=== PATIENT | female | born 1960 | race Caucasian/White ===

== ENCOUNTER 2019-09-05 06:48 | Inpatient (IN) ==
[2019-09-05] MEDS ORDERED: ASPIRIN PO ONE (08:15)
--- NOTE | 2019-09-05 08:16 | PROVIDER DOCUMENTATION ---
HPI-Cardiac General - General Stated Complaint: generalized pain Time Seen by Provider: 09/05/19 07:45 Source: patient, family ( at bedside) - History of Present Illness-Cardiac Nature of Presenting Problem: 59 YO F pmh for CVA residual left sided weakness presents with c/o right sided chest pain, sharp with associated nausea that began at 0500 today. Pt has multiple complaints and states she is in pain. Pain not worse with inspiration. Quality of Pain: reports: aching, sharp Severity in ED: moderate Onset/Duration: 1-3 hours ago Timing: still present, constant Context/Activities at Onset: reports: none Modifying Factors: improves with: nothing Aspirin Treatment Today: reports: 81 mg x 1 Review of Systems - Adult - REVIEW OF SYSTEMS - ADULT Constitutional: denies: chills, fever Eyes: reports: no symptoms reported Ears, Nose, Mouth & Throat: reports: no symptoms reported Cardiovascular: reports: chest pain. denies: palpitations, syncope Respiratory: denies: cough, shortness of breath, wheezing Gastrointestinal: reports: nausea, vomiting Genitourinary: reports: no symptoms reported. denies: dysuria, flank pain Musculoskeletal: reports: bone pain, joint pain, muscle aches Integumentary: reports: no symptoms reported Neurological: denies: headache/migraines Psychiatric: reports: no symptoms reported Endocrine: reports: no symptoms reported Hematologic/Lymphatic: reports: no symptoms reported Past History - Adult - PAST MEDICAL HISTORY-ADULT Review of Records: reports: Old Records Reviewed, Social history reviewed & non-contributory. Respiratory: reports: denies history Gastrointestinal: reports: denies history Neurological: reports: CVA, stroke deficits (left sided) Psychiatric: reports: denies history - PRIOR SURGERIES/PROCEDURES Surgical/Procedure History: denies: recent surgery - FAMILY HISTORY Family History: reviewed, not pertinent - SOCIAL HISTORY Smoking: denies Substance Use: denies Living Situation: family Physical Exam-General - PHYSICAL EXAM-ADULT Initial Vital Signs Reviewed: Yes - CONSTITUTIONAL General Appearance: alert, no apparent distress - EYES Eyes: PERRL/EOMI, pink conjunctivae - HEAD, EARS, NOSE, MOUTH & THROAT HENMT: moist mucous membranes - NECK Neck: supple - RESPIRATORY Respiratory: lungs clear, normal breath sounds, no pleuratic chest pain - CARDIOVASCULAR Cardiovascular: regular rate, rhythm - GASTROINTESTINAL (ABDOMEN) Abdominal Exam: non tender, soft - MUSCULOSKELETAL Back Exam: no CVA tenderness Extremity: other (left sided residual weakness) - SKIN Integumentary: normal color, normal turgor, warm/dry - PSYCHIATRIC Psych/Mental Status: normal thought content - HEART Score HEART Score: History: Slightly Suspicious HEART Score: ECG: Normal HEART Score: Age: 45-65 Years HEART Score: Risk Factors for Atherosclerotic Disease: 1 or 2 Risk Factors HEART Score: Troponin: 1-3x Normal Limit Total HEART Score:: 3 Progress - PLAN OF CARE/RESULTS Progress/Plan/Lab Results: Vital Signs - 8 hr 09/05/19 07:46 Pulse Rate 91 H Respiratory Rate 18 Blood Pressure 136/88 O2 Sat by Pulse Oximetry 97 Laboratory Results - last 24 hr 09/05/19 09/05/19 09/05/19 07:40 07:40 07:40 WBC 10.24 RBC 4.49 Hgb 13.3 Hct 42.0 MCV 93.5 MCH 29.6 MCHC 31.7 L RDW Std Deviation 13.4 Plt Count 348 MPV 10.7 H Immature Gran % (Auto) 0.4 Neut % (Auto) 69.2 Lymph % (Auto) 18.0 L Kemper % (Auto) 5.8 Eos % (Auto) 6.3 Baso % (Auto) 0.3 Immature Gran # (Auto) 0.04 Neut # (Auto) 7.10 H Lymph # (Auto) 1.84 Kemper # (Auto) 0.59 Eos # (Auto) 0.64 Baso # (Auto) 0.03 Sodium 136 Potassium 6.2 H* Chloride 103 Carbon Dioxide 16 L Anion Gap 17 BUN 45 H Creatinine 1.3 H Estimated GFR/1.73 m2 42 BUN/Creatinine Ratio 35 Glucose 137 H Calculated Osmolality 286 Calcium 9.5 Total Bilirubin 0.21 AST 9 L ALT < 5 L Alkaline Phosphatase 84 Troponin T 0.036 Total Protein 6.4 Albumin 3.7 Globulin 2.7 Albumin/Globulin Ratio 1.4 TSH 09/05/19 07:40 WBC RBC Hgb Hct MCV MCH MCHC RDW Std Deviation Plt Count MPV Immature Gran % (Auto) Neut % (Auto) Lymph % (Auto) Kemper % (Auto) Eos % (Auto) Baso % (Auto) Immature Gran # (Auto) Neut # (Auto) Lymph # (Auto) Kem[place] # (Auto) Eos # (Auto) Baso # (Auto) Sodium Potassium Chloride Carbon Dioxide Anion Gap BUN Creatinine Estimated GFR/1.73 m2 BUN/Creatinine Ratio Glucose Calculated Osmolality Calcium Total Bilirubin AST ALT Alkaline Phosphatase Troponin T Total Protein Albumin Globulin Albumin/Globulin Ratio TSH 3.84 Orders Category Date Time Status Cardiac Monitoring DIRECTED Care 09/05/19 08:21 Active CHEST-1 VIEW [RAD] Stat Exams 09/05/19 08:13 Completed CBC WITH ELECTRONIC DIFF [HEME] Stat Lab 09/05/19 07:40 Completed COMPREHENSIVE METABOLIC PANEL [CHEM] Stat Lab 09/05/19 07:40 Completed MAGNESIUM [CHEM] Stat Lab 09/05/19 10:07 Ordered TROPONIN T Stat Lab 09/05/19 07:40 Completed TSH Stat Lab 09/05/19 07:40 Completed URINALYSIS W/POSS RFLX CULT [URINALYSIS] Stat Lab 09/05/19 08:21 Ordered 0.9% Sodium Chloride Inj [Ns] 1,000 ml Med 09/05/19 09:49 Active IV 999 mls/hr Albuterol 0.5% INH Conc [Albuterol 0.5% INH Conc For Med 09/05/19 09:45 Discontinued Hyperkalemia] 25 mg INH NOW ONE Aspirin Med 09/05/19 08:15 Discontinued 324 mg PO NOW ONE Morphine Med 09/05/19 08:20 Discontinued 4 mg IV NOW ONE Ondansetron [Zofran] Med 09/05/19 08:21 Discontinued 4 mg IV NOW ONE Sodium Polystyrene [Kayexalate] Med 09/05/19 09:46 Discontinued 30 gm PO NOW ONE Aerosol Treatments Routine Oth 09/05/19 09:45 Active Aerosol Treatments Stat Oth 09/05/19 09:45 Active EKG [EKG] Stat Ther 09/05/19 08:13 Draft pt with normal EKG and normal trop and xray. Potassium showing elevation at 6.2 with elevated creat at 1.3 and GFR at 45. admitting for hyperkalemia with SHELL. Result Diagrams: 09/05/19 07:40 09/05/19 07:40 - REASSESSMENT Reassessment #1 Time Reassessed: 09:40 Status: improving (pt improving after morphine and zofran. Pt with multiple complaints and having pain on admission. More concerns for pain in her left leg.) Reassessment #2 Time Reassessed: 09:48 Status: improving (labs reviewed. Potassium at 6.2. Creat at 1.3) - EKG 1 Time of EKG reading by physician:: 08:15 EKG Read and Signed by:: Jennie Davis EKG Interpretation (*Must complete 3 of following elements*): Normal Rate: 95 Rhythm: NSR [place]: normal QRS: normal CA Interval: normal (low voltage) Prior EKG Comparison: unchanged from prior (02/19/19) - XRAY 1 XRAY Study: Chest Impression: See EMR Report (CHEST-1 VIEW - 09/05/2019 INDICATION: CP COMPARISON: 02/15/2019 FINDINGS: The lungs are normally expanded and clear. Heart size and mediastinal contours are normal. No pneumothorax or pleural effusion. IMPRESSION: Negative exam. Electronically signed by Ady Landers 09/05/2019 8:32 AM 09/05/19 0832) - CONSULTS/PCP/HOSPITALIST Notification #1 *Consult/PCP/Hospitalist*: Dr. Esau Alvarez Time Discussed: 10:03 Consult Disposition: Will see in ED Departure - Departure Date of Disposition Decision: 09/05/19 Time of Disposition Decision: 10:02 DIAGNOSIS: Atypical chest pain, Hyperkalemia, SHELL (acute kidney injury) Disposition: ADMITTED INPATIENT 09 Certified Medical Emergency: Emergent Condition: Stable Referrals and Follow-Ups: Juju Kohler [Primary Care Provider] - - Critical Care Note This patient required my direct & personal management of CC.: No Attestation - Physician/ LATRICE Attestation The physician spent face to face time with patient:: Yes Advanced Practice Provider documentation review:: Supervising physician onsite and consulted in the evaluation and care of this patient. The physician did have a face to face encounter with the patient.
--- NOTE | 2019-09-05 08:19 | EKG Report ---
Test Performed on : 09/05/2019 08:11:08 AM Test Reason : CP Blood Pressure : / mmHG Vent. Rate : 095 BPM Atrial Rate : 095 BPM P-R Int : 182 ms QRS Dur : 104 ms QT Int : 374 ms P-R-T Axes : 050 -16 067 degrees QTc Int : 469 ms Normal sinus rhythm. Low voltage QRS Borderline ECG When compared with ECG of 15-FEB-2019 19:48, Questionable change in QRS duration Unconfirmed Result
[2019-09-05] MEDS ORDERED: MORPHINE IV ONE (08:20)
[2019-09-05] MEDS ORDERED: ZOFRAN IV ONE (08:21)
--- NOTE | 2019-09-05 08:35 | Diag Imaging Result Doc PS360 ---
CHEST-1 VIEW - 09/05/2019 INDICATION: CP COMPARISON: 02/15/2019 FINDINGS: The lungs are normally expanded and clear. Heart size and mediastinal contours are normal. No pneumothorax or pleural effusion. IMPRESSION: Negative exam. Electronically signed by Ady Landers 09/05/2019 8:32 AM
[2019-09-05 08:43] LABS: BASO# 0.03 X1000 (0.0-0.2); BASO% 0.3 % (0.0-0.8); EOS# 0.64 X1000 (0.0-0.7); EOS% 6.3 % (0.0-10.0); HEMOGLOBIN 13.3 g/dL (12.0-16.0); IMM GRAN# 0.04 X1000 (0.0-0.04); IMM GRAN% 0.4 % (0.0-0.5); LYMPH# 1.84 X1000 (1.2-3.4); MCH 29.6 PG (27-31); MCHC 31.7 g/dL (33-37); MCV 93.5 FL (81-99); MONO# 0.59 X1000 (0.11-0.59); MONO% 5.8 % (1.7-9.3); MPV 10.7 FL (7.4-10.4); NEUT% 69.2 % (42.2-75.2); PLT 348 X1000 (130-400); RBC 4.49 XMIL (4.2-5.4); RDW 13.4 % (11.5-14.5); WBC 10.24 X1000 (4.8-10.8)
[2019-09-05 09:34] LABS: AGAP 17; ALB/GLOB RATIO 1.4; ALBUMIN 3.7 g/dL (3.5-5.0); ALKALINE PHOSPHATASE 84 U/L (32-104); BUN 45 mg/dL (8-22); CALCIUM 9.5 mg/dL (8.8-10.2); CHLORIDE 103 mmol/L (98-107); COSMO 286; CREATININE 1.3 mg/dL (0.5-0.9); ESTIMATED GFR 42; GLUCOSE 137 mg/dL (70-104); GOT 9 U/L (10-30); GPT < 5 U/L (10-36); SODIUM 136 mmol/L (136-145); TCO2 16 mmol/L (25-35); TOTAL BILIRUBIN 0.21 mg/dL (0.20-1.00); TOTAL PROTEIN 6.4 g/dL (6.3-8.3)
[2019-09-05 09:44] LABS: POTASSIUM 6.2 mmol/L (3.5-5.1)
[2019-09-05] MEDS ORDERED: ALBUTEROL 0.5% INH CONC FOR HYPERKALEMIA INH ONE (09:45)
[2019-09-05] MEDS ORDERED: KAYEXALATE PO ONE (09:46)
[2019-09-05] MEDS ORDERED: NS 1,000 ML IV ONE (09:49)
[2019-09-05] MEDS ORDERED: TYLENOL PO PRN (10:10)
[2019-09-05] MEDS: HEPARIN SUBQ SCH (10:27)
[2019-09-05] MEDS ORDERED: HUMULIN R IV ONE (12:06)
[2019-09-05] MEDS ORDERED: D50W 500 ML IV SCH (12:15)
[2019-09-05] MEDS ORDERED: D50W SYRINGE IV ONE (12:15)
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
--- NOTE | 2019-09-05 14:51 | Diag Imaging Result Doc PS360 ---
EXAM: US RENAL 2 (RETROPER) COMPLETE 09/05/2019 HISTORY: avinash TECHNIQUE: Renal ultrasound COMMENT: The urinary bladder is not distended and is normal in appearance. The right kidney measures 9.8 x 4.5 x 5.3 cm the left is 9.6 x 4.4 x 5.7 cm. There is a cortical cyst on the right measuring 9 mm in diameter. No solid masses are demonstrated. There is no evidence of hydronephrosis or stones. IMPRESSION: Normal renal ultrasound. Electronically signed by Cristian Rajan 09/05/2019 2:49 PM
[2019-09-05 15:48] LABS: CALCIUM 9.5 mg/dL (8.8-10.2); CREATININE 1.3 mg/dL (0.5-0.9); POTASSIUM 5.2 mmol/L (3.5-5.1)
[2019-09-05] MEDS ORDERED: ROBAXIN PO PRN (16:19)
[2019-09-05] MEDS ORDERED: ZOFRAN IV PRN (16:19)
[2019-09-05] MEDS: NS 1,000 ML IV SCH (16:33)
[2019-09-05] MEDS: NORCO-5 PO PRN (16:58)
[2019-09-05 17:23] LABS: URINE SOURCE CATH
[2019-09-05 17:41] LABS: UR CREAT RANDOM 80.8 mg/dL (11-20)
[2019-09-05 17:53] LABS: UR EPITHELIAL CELLS >10 /HPF (<10); URINE BACTERIA NEGATIVE /HPF; URINE RBC <10 /HPF (<10); URINE WBC <10 /HPF (<10)
[2019-09-05 17:54] LABS: BILIRUBIN URINE NEGATIVE (NEGATIVE); BLOOD URINE NEGATIVE (NEGATIVE); COLOR YELLOW; GLUCOSE URINE 100 mg/dL (NEGATIVE); KETONE URINE 10 mg/dL (NEGATIVE); LEUKOCYTES URINE NEGATIVE (NEGATIVE); NITRITE URINE NEGATIVE (NEGATIVE); PROTEIN URINE TRACE mg/dL (NEGATIVE); SP GRAVITY URINE 1.022; TURBIDITY URINE CLEAR (CLEAR); UROBILINOGEN URINE NORMAL (NORMAL)
[2019-09-06] MEDS: NORCO-5 PO PRN (00:23)
[2019-09-06] MEDS: HEPARIN SUBQ SCH ×3 (00:24→21:50)
[2019-09-06] MEDS: ATIVAN PO SCH ×2 (01:52→09:43)
[2019-09-06] MEDS: APRESOLINE PO SCH ×3 (01:53→21:49)
[2019-09-06] MEDS: WELLBUTRIN SR PO SCH ×3 (01:54→21:49)
[2019-09-06] MEDS: CELEXA PO SCH ×2 (01:54→21:50)
[2019-09-06] MEDS: COLACE PO SCH ×2 (01:54→09:45)
[2019-09-06] MEDS: SINGULAIR PO SCH ×2 (01:54→21:49)
[2019-09-06] MEDS: ROBAXIN PO SCH ×2 (01:55→21:49)
[2019-09-06] MEDS: REMERON PO SCH ×2 (01:55→21:50)
[2019-09-06] MEDS: PRILOSEC PO SCH ×3 (01:55→21:49)
[2019-09-06] MEDS: NEURONTIN PO SCH ×2 (01:55→21:50)
[2019-09-06] MEDS: DEPAKOTE SPRINKLE PO SCH ×3 (01:56→21:49)
[2019-09-06] MEDS: LIPITOR PO SCH ×2 (01:56→21:49)
[2019-09-06] MEDS: LACTULOSE PO SCH ×4 (01:56→22:00)
[2019-09-06] MEDS: COREG PO SCH ×3 (01:57→21:49)
[2019-09-06 04:35] LABS: BASO# 0.02 X1000 (0.0-0.2); BASO% 0.3 % (0.0-0.8); HEMATOCRIT 38.7 % (37.0-47.0); HEMOGLOBIN 11.9 g/dL (12.0-16.0); IMM GRAN# 0.02 X1000 (0.0-0.04); IMM GRAN% 0.3 % (0.0-0.5); LYMPH# 2.17 X1000 (1.2-3.4); LYMPH% 30.2 % (20.5-51.1); MCH 29.3 PG (27-31); MCHC 30.7 g/dL (33-37); MCV 95.3 FL (81-99); MONO# 0.68 X1000 (0.11-0.59); MONO% 9.5 % (1.7-9.3); MPV 10.3 FL (7.4-10.4); NEUT% 52.7 % (42.2-75.2); PLT 272 X1000 (130-400); RBC 4.06 XMIL (4.2-5.4); RDW 13.4 % (11.5-14.5); WBC 7.19 X1000 (4.8-10.8)
[2019-09-06 04:59] LABS: AGAP 13; ALB/GLOB RATIO 1.1; ALBUMIN 3.2 g/dL (3.5-5.0); ALKALINE PHOSPHATASE 71 U/L (32-104); BUN 32 mg/dL (8-22); CHLORIDE 105 mmol/L (98-107); COSMO 283; CREATININE 1.1 mg/dL (0.5-0.9); ESTIMATED GFR 51; GLUCOSE 111 mg/dL (70-104); GOT 10 U/L (10-30); GPT < 5 U/L (10-36); POTASSIUM 4.2 mmol/L (3.5-5.1); SODIUM 138 mmol/L (136-145); TCO2 20 mmol/L (25-35); TOTAL BILIRUBIN < 0.15 mg/dL (0.20-1.00); TOTAL PROTEIN 6.2 g/dL (6.3-8.3)
[2019-09-06] MEDS: ZOFRAN IV PRN (08:01)
--- NOTE | 2019-09-06 08:07 | EKG Report ---
Test Performed on : 09/06/2019 07:27:24 AM Test Reason : chest pain Blood Pressure : / mmHG Vent. Rate : 083 BPM Atrial Rate : 083 BPM P-R Int : 156 ms QRS Dur : 088 ms QT Int : 390 ms P-R-T Axes : 054 016 069 degrees QTc Int : 458 ms Normal sinus rhythm. Normal ECG When compared with ECG of 05-SEP-2019 08:11, (Unconfirmed) No significant change was found Confirmed by Vlad REY, Alonso ([id number]) on 09/06/2019 8:55:35 AM
[2019-09-06] MEDS ORDERED: PERCOCET-5 PO PRN (08:13)
[2019-09-06] MEDS ORDERED: PROTONIX PO SCH (09:00)
--- NOTE | 2019-09-06 09:00 | PROGRESS NOTE ---
DATE: 09/05/2019 SUBJECTIVE: Ms. Viveros says she did not sleep much last night. This morning she is complaining of nausea again. She has not complained of any chest pain. OBJECTIVE: Vital Signs: Temperature is 97.8 degrees, pulse 86, respirations 18, blood pressure 131/73. Eyes: Pupils are equal. Neck: No distended neck veins. Lungs: Lungs are clear in all lung arnold. Cardiovascular exam: Regular rhythm and rate without murmur or S3. Abdomen: Abdomen is soft, nondistended, nontender. Extremities: No pedal edema. LABORATORY DATA: Review of lab from yesterday: White count was 7190, hematocrit was 38, platelet count 272,000. Her sodium is good at 138, potassium 4.2, chloride 105. BUN 32, creatinine 1.1 which is down from 1.3, albumin 3.2. T4 and TSH were normal. ASSESSMENT AND PLAN: 1. Chest pain which sounded like it was not cardiac, and it was in the face of constipation and nausea. She has had some bowel movements. I think the constipation is resolved, and I think she is still nauseated. I suspect she has some underlying gastritis. 2. Hyperkalemia. Her potassium this morning is down to 4.2. 3. Left leg pain and left foot pain. It migrates up her leg and into her left knee. She has not been out of the bed, able to ambulate. We will get physical therapy to try and help with that. 4. Hypertension. Blood pressure appears well controlled. Looking back at her old films, I do not see any recent x-rays on the left leg. So, I am going to x-ray the left leg and have physical therapy try and work on her ambulation. She is taking Wellbutrin SR 150 mg twice a day, and she is on Celexa 40 mg at bedtime. She is on Depakote 125 mg twice a day, Colace 100 mg twice a day, Neurontin 300 mg at bedtime, Apresoline 25 mg b.i.d., Linzess 72 mcg p.o. daily, metformin 1000 mg daily, Remeron 15 mg at bedtime, Prilosec 40 mg b.i.d. I suspect some of the medicines may be contributing to her nausea; the combination of Wellbutrin and Celexa and Neurontin. So, I may discuss stopping some of these medicines, and we will see how we do with occupation and physical therapy. Put her on a regular diet. I am going to put her on a high dose. I will keep her on high-dose proton pump inhibitor. She is on Prilosec 40 mg twice a day. cc: Rubens Cifuentes MD
[2019-09-06] MEDS: MOBIC PO SCH (09:45)
[2019-09-06] MEDS: GLUCOPHAGE XR PO SCH (10:31)
[2019-09-06] MEDS: NS 1,000 ML IV SCH ×2 (10:31→14:25)
[2019-09-06] MEDS: LANTUS INSULIN SUBQ SCH (12:52)
[2019-09-06] MEDS: LIDODERM TOP SCH (12:53)
[2019-09-06] MEDS: LINZESS PO SCH (12:54)
[2019-09-07] MEDS: COLACE PO SCH ×3 (04:55→20:29)
[2019-09-07] MEDS: LIDODERM TOP SCH ×2 (06:32→10:10)
[2019-09-07] MEDS: LINZESS PO SCH (06:34)
[2019-09-07 07:32] LABS: BASO# 0.01 X1000 (0.0-0.2); BASO% 0.2 % (0.0-0.8); EOS# 0.61 X1000 (0.0-0.7); EOS% 11.1 % (0.0-10.0); HEMATOCRIT 28.5 % (37.0-47.0); HEMOGLOBIN 8.8 g/dL (12.0-16.0); LYMPH# 1.78 X1000 (1.2-3.4); LYMPH% 32.4 % (20.5-51.1); MCH 29.5 PG (27-31); MCHC 30.9 g/dL (33-37); MCV 95.6 FL (81-99); MONO# 0.47 X1000 (0.11-0.59); MONO% 8.5 % (1.7-9.3); MPV 10.4 FL (7.4-10.4); NEUT# 2.63 X1000 (1.4-6.5); NEUT% 47.8 % (42.2-75.2); PLT 199 X1000 (130-400); RBC 2.98 XMIL (4.2-5.4); RDW 13.1 % (11.5-14.5)
[2019-09-07 07:57] LABS: AGAP 12; ALB/GLOB RATIO 1.1; ALBUMIN 2.3 g/dL (3.5-5.0); ALKALINE PHOSPHATASE 47 U/L (32-104); BUN 14 mg/dL (8-22); CHLORIDE 119 mmol/L (98-107); COSMO 293; CREATININE 0.5 mg/dL (0.5-0.9); ESTIMATED GFR > 60; GLUCOSE 64 mg/dL (70-104); GOT 8 U/L (10-30); GPT < 5 U/L (10-36); SODIUM 148 mmol/L (136-145); TCO2 17 mmol/L (25-35); TOTAL BILIRUBIN < 0.15 mg/dL (0.20-1.00); TOTAL PROTEIN 4.3 g/dL (6.3-8.3)
[2019-09-07 08:07] LABS: CALCIUM 6.4 mg/dL (8.8-10.2)
[2019-09-07] MEDS ORDERED: MAGNESIUM SULFATE 2 GM/S.W.I. 2 GM/50 ML IVPB IV ONE (08:13)
[2019-09-07] MEDS: ZOFRAN IV PRN (10:15)
[2019-09-07] MEDS: LANTUS INSULIN SUBQ SCH (10:18)
[2019-09-07] MEDS: DEPAKOTE SPRINKLE PO SCH ×2 (10:20→20:29)
[2019-09-07] MEDS: HEPARIN SUBQ SCH ×2 (10:20→20:29)
[2019-09-07] MEDS: PRILOSEC PO SCH ×2 (10:20→20:29)
[2019-09-07] MEDS: GLUCOPHAGE XR PO SCH (10:20)
[2019-09-07] MEDS: APRESOLINE PO SCH ×2 (10:21→20:29)
[2019-09-07] MEDS: LACTULOSE PO SCH ×3 (10:21→20:42)
[2019-09-07] MEDS: MOBIC PO SCH (10:21)
[2019-09-07] MEDS: WELLBUTRIN SR PO SCH ×2 (10:21→20:29)
[2019-09-07] MEDS: COREG PO SCH ×2 (10:22→20:28)
[2019-09-07] MEDS: NS 1,000 ML IV SCH (12:07)
[2019-09-07] MEDS ORDERED: CALCIUM GLUCONATE 1 GM in NS 50 ML IV ONE (13:06)
--- NOTE | 2019-09-07 13:37 | PROGRESS NOTE ---
DATE: 09/07/2019 SUBJECTIVE: Ms. Viveros is discouraged. She is still very weak and concerned about the fact she is going to need quite a bit of help. OBJECTIVE: Vital Signs: Temperature is 98.1 degrees, pulse 70, respirations 18, blood pressure 98/51. HEENT: Pupils are equal and round. Lungs: Clear in all lung arnold. Cardiovascular: Regular rate without murmur or S3. Abdomen: Soft. Skin: Warm and dry. ASSESSMENT AND PLAN: 1. Chest pain, which did not sound like it is cardiac, and this was in the face of constipation, nausea, and constipation is improved. I suspect she has some underlying gastritis. 2. Hyperkalemia. Potassium was down to normal levels. 3. Left leg pain, foot pain. We will continue physical therapy. 4. Hypertension. Blood pressures appear well controlled. REVIEW OF HER ORDERS/MEDICATIONS: Lipitor 40 mg every night at bedtime, Wellbutrin 150 mg p.o. b.i.d., Coreg 6.25 mg b.i.d., Celexa 40 mg a day; divalproex, which is Depakote, 125 mg p.o. b.i.d.; Colace 100 mg b.i.d., Neurontin 300 mg every at bedtime, hydralazine 25 mg b.i.d.; insulin glargine, which is Lantus, 15 units daily; lactulose 30 mL b.i.d., lidocaine patch which she puts daily, Linzess 72 mcg daily, Mobic 15 mg daily, metformin ER 1000 mg p.o. daily, methocarbamol 750 mg p.o. every night at bedtime, Remeron 15 mg every night at bedtime, Singulair 10 mg every night at bedtime, normal saline at 85 mL an hour, omeprazole 40 mg p.o. b.i.d. cc: Rubens Cifuentes MD
[2019-09-07] MEDS ORDERED: ATIVAN IV PRN (15:10)
[2019-09-07] MEDS ORDERED: CALMOSEPTINE OINTMENT TOP PRN (15:31)
[2019-09-07] MEDS: MAG-OX PO SCH (20:28)
[2019-09-07] MEDS: SINGULAIR PO SCH (20:29)
[2019-09-07] MEDS: ROBAXIN PO SCH (20:29)
[2019-09-07] MEDS: REMERON PO SCH (20:29)
[2019-09-07] MEDS: LIPITOR PO SCH (20:29)
[2019-09-07] MEDS: CELEXA PO SCH (20:29)
[2019-09-07] MEDS: NEURONTIN PO SCH (20:32)
[2019-09-08] MEDS: HEPARIN SUBQ SCH ×3 (04:15→22:00)
[2019-09-08] MEDS: LINZESS PO SCH (06:11)
[2019-09-08 07:09] LABS: AGAP 10; ALB/GLOB RATIO 1.1; ALBUMIN 2.7 g/dL (3.5-5.0); ALKALINE PHOSPHATASE 67 U/L (32-104); BUN 9 mg/dL (8-22); CALCIUM 8.9 mg/dL (8.8-10.2); CHLORIDE 114 mmol/L (98-107); COSMO 284; CREATININE 0.7 mg/dL (0.5-0.9); ESTIMATED GFR > 60; GLUCOSE 78 mg/dL (70-104); GOT 10 U/L (10-30); GPT < 5 U/L (10-36); MAGNESIUM 1.7 mg/dL (1.5-2.7); POTASSIUM 3.9 mmol/L (3.5-5.1); SODIUM 144 mmol/L (136-145); TCO2 20 mmol/L (25-35); TOTAL BILIRUBIN 0.18 mg/dL (0.20-1.00); TOTAL PROTEIN 5.1 g/dL (6.3-8.3)
[2019-09-08 07:19] LABS: BASO# 0.02 X1000 (0.0-0.2); BASO% 0.3 % (0.0-0.8); EOS# 0.67 X1000 (0.0-0.7); EOS% 9.2 % (0.0-10.0); HEMATOCRIT 32.2 % (37.0-47.0); HEMOGLOBIN 10.1 g/dL (12.0-16.0); LYMPH# 2.33 X1000 (1.2-3.4); MCH 29.5 PG (27-31); MCHC 31.4 g/dL (33-37); MCV 94.2 FL (81-99); MONO# 0.62 X1000 (0.11-0.59); MONO% 8.5 % (1.7-9.3); MPV 10.5 FL (7.4-10.4); NEUT# 3.64 X1000 (1.4-6.5); PLT 262 X1000 (130-400); RBC 3.42 XMIL (4.2-5.4); RDW 13.3 % (11.5-14.5); WBC 7.28 X1000 (4.8-10.8)
[2019-09-08] MEDS: WELLBUTRIN SR PO SCH ×2 (09:00→22:00)
[2019-09-08] MEDS: DEPAKOTE SPRINKLE PO SCH ×2 (09:56→22:00)
[2019-09-08] MEDS: MOBIC PO SCH (09:57)
[2019-09-08] MEDS: PRILOSEC PO SCH ×2 (09:57→22:00)
[2019-09-08] MEDS: COLACE PO SCH ×2 (09:57→22:00)
[2019-09-08] MEDS: COREG PO SCH ×2 (09:57→22:00)
[2019-09-08] MEDS: MAG-OX PO SCH ×2 (09:57→22:00)
[2019-09-08] MEDS: APRESOLINE PO SCH ×2 (09:58→22:00)
[2019-09-08] MEDS: LACTULOSE PO SCH ×2 (09:58→22:00)
[2019-09-08] MEDS: LIDODERM TOP SCH (09:58)
[2019-09-08] MEDS: GLUCOPHAGE XR PO SCH (09:59)
--- NOTE | 2019-09-08 10:22 | PROGRESS NOTE ---
DATE: 09/08/2019 Ms. Viveros is feeling a little better, less despondent this morning. She is still very weak. She had a pretty good night. OBJECTIVE: Vital Signs: Temp 98 degrees, pulse 80, respirations 19, blood pressure 103/66. HEENT: Pupils are equal and round. Lungs: Are clear in all lung arnold. Cardiovascular: Regular rhythm and rate without murmur or S3. Abdomen: Is soft. Skin: Is warm and dry. Urine output is 2000 mL. ASSESSMENT AND PLAN: 1. Chest pain which is resolved when she presented. No sign of cardiac ischemia. 2. Hyperkalemia which is resolved. 3. Left leg and foot pain. Continue her physical therapy and she is hoping she can go to rehab. There is a referral for [facility] and rehab. 4. Hypertension. Blood pressure is well controlled. REVIEW OF ORDERS: I do not see any change. She is on Lipitor 40 mg at bedtime, Wellbutrin SR 150 mg b.i.d., Coreg 6.25 mg b.i.d., Celexa 40 mg a day, Depakote 125 mg b.i.d., gabapentin 300 mg at bedtime, lactulose 30 mL b.i.d. She is only on lidocaine patch. She is on Linzess 72 mcg p.o. daily, Ativan 1 mg IV q.6 hours p.r.n., magnesium oxide 800 mg b.i.d., Mobic 15 mg p.o. daily, metformin ER 1000 mg daily, Robaxin 750 mg at bedtime, Remeron 15 mg at bedtime, Singulair 10 mg at bedtime, normal saline at 85 mL an hour, Prilosec 40 mg b.i.d. Calcium gluconate was given yesterday. Chemistries from this morning, calcium is 8.9, potassium 3.9, magnesium is 1.7 so markedly improved. cc: Rubens Cifuentes MD
[2019-09-08] MEDS: LANTUS INSULIN SUBQ SCH (10:25)
[2019-09-08] MEDS: NS 1,000 ML IV SCH (12:16)
[2019-09-08] MEDS: NORCO-5 PO PRN (19:24)
[2019-09-08] MEDS: REMERON PO SCH (22:00)
[2019-09-08] MEDS: CELEXA PO SCH (22:00)
[2019-09-08] MEDS: LIPITOR PO SCH (22:00)
[2019-09-08] MEDS: ROBAXIN PO SCH (22:00)
[2019-09-08] MEDS: SINGULAIR PO SCH (22:00)
[2019-09-08] MEDS: NEURONTIN PO SCH (22:00)
[2019-09-09] MEDS: LINZESS PO SCH (06:10)
[2019-09-09 07:03] LABS: BASO# 0.02 X1000 (0.0-0.2); BASO% 0.3 % (0.0-0.8); EOS# 0.63 X1000 (0.0-0.7); EOS% 9.3 % (0.0-10.0); HEMATOCRIT 32.4 % (37.0-47.0); HEMOGLOBIN 10.1 g/dL (12.0-16.0); IMM GRAN# 0.02 X1000 (0.0-0.04); IMM GRAN% 0.3 % (0.0-0.5); LYMPH# 2.92 X1000 (1.2-3.4); LYMPH% 43.2 % (20.5-51.1); MCH 29.3 PG (27-31); MCHC 31.2 g/dL (33-37); MCV 93.9 FL (81-99); MONO# 0.51 X1000 (0.11-0.59); MONO% 7.5 % (1.7-9.3); MPV 10.4 FL (7.4-10.4); NEUT# 2.66 X1000 (1.4-6.5); NEUT% 39.4 % (42.2-75.2); PLT 269 X1000 (130-400); RBC 3.45 XMIL (4.2-5.4); RDW 13.6 % (11.5-14.5); WBC 6.76 X1000 (4.8-10.8)
[2019-09-09 07:27] LABS: AGAP 10; ALB/GLOB RATIO 1.2; ALBUMIN 2.7 g/dL (3.5-5.0); ALKALINE PHOSPHATASE 66 U/L (32-104); BUN 8 mg/dL (8-22); CALCIUM 8.8 mg/dL (8.8-10.2); CHLORIDE 114 mmol/L (98-107); COSMO 287; CREATININE 0.8 mg/dL (0.5-0.9); ESTIMATED GFR > 60; GLUCOSE 69 mg/dL (70-104); GOT 9 U/L (10-30); GPT 5 U/L (10-36); MAGNESIUM 1.8 mg/dL (1.5-2.7); POTASSIUM 4.1 mmol/L (3.5-5.1); SODIUM 146 mmol/L (136-145); TCO2 22 mmol/L (25-35); TOTAL BILIRUBIN < 0.15 mg/dL (0.20-1.00)
[2019-09-09] MEDS: MOBIC PO SCH (09:21)
[2019-09-09] MEDS: DEPAKOTE SPRINKLE PO SCH ×2 (09:21→22:54)
[2019-09-09] MEDS: COREG PO SCH ×2 (09:21→22:54)
[2019-09-09] MEDS: APRESOLINE PO SCH ×2 (09:21→22:54)
[2019-09-09] MEDS: COLACE PO SCH ×2 (09:21→22:54)
[2019-09-09] MEDS: PRILOSEC PO SCH ×2 (09:21→22:54)
[2019-09-09] MEDS: WELLBUTRIN SR PO SCH ×2 (09:21→22:54)
[2019-09-09] MEDS: MAG-OX PO SCH ×2 (09:22→22:54)
[2019-09-09] MEDS: HEPARIN SUBQ SCH ×2 (09:22→22:53)
[2019-09-09] MEDS: LIDODERM TOP SCH (09:22)
[2019-09-09] MEDS: LACTULOSE PO SCH ×2 (09:23→22:55)
[2019-09-09] MEDS: GLUCOPHAGE XR PO SCH (09:23)
[2019-09-09] MEDS: LANTUS INSULIN SUBQ SCH (10:00)
[2019-09-09] MEDS: NS 1,000 ML IV SCH (14:30)
[2019-09-09] MEDS: NORCO-5 PO PRN (18:26)
--- NOTE | 2019-09-09 18:31 | PROGRESS NOTE ---
DATE: 09/09/2019 SUBJECTIVE: Ms. Viveros is feeling a little better. She feels like she is a little stronger. Her left foot and leg are not hurting as bad. OBJECTIVE: Temperature 98.3 degrees, pulse 69, respirations 16, blood pressure 97/55. Pupils are equal and round. Lungs are clear in all lung arnold. Cardiovascular exam regular rhythm and rate, without murmur or S3. Abdomen is soft. Skin is warm and dry. ASSESSMENT AND PLAN: 1. Chest pain, which has resolved. No further complaints. No sign of cardiac ischemia. 2. Hyperkalemia, resolved. 3. Left leg and foot pain. Continue physical therapy. Hoping to find a place for her to go to rehab. She has a referral to [facility]. 4. Hypertension. Blood pressure appears well controlled. 5. She is eating a little better. Encourage her p.o. intake. On review of her orders, I do not see a change at this time. She is on Wellbutrin and Celexa, getting normal saline at 85 mL/h. cc: Rubens Cifuentes MD
[2019-09-09] MEDS: REMERON PO SCH (22:54)
[2019-09-09] MEDS: CELEXA PO SCH (22:55)
[2019-09-09] MEDS: LIPITOR PO SCH (22:55)
[2019-09-09] MEDS: NEURONTIN PO SCH (22:55)
[2019-09-09] MEDS: SINGULAIR PO SCH (22:55)
[2019-09-09] MEDS: ROBAXIN PO SCH (22:55)
[2019-09-10] MEDS: NS 1,000 ML IV SCH (03:53)
[2019-09-10] MEDS: LINZESS PO SCH (07:44)
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
[2019-09-10] MEDS: PRILOSEC PO SCH ×2 (09:42→20:23)
[2019-09-10] MEDS: DEPAKOTE SPRINKLE PO SCH ×2 (09:43→20:23)
[2019-09-10] MEDS: MAG-OX PO SCH (09:43)
[2019-09-10] MEDS: COLACE PO SCH ×2 (09:43→20:22)
[2019-09-10] MEDS: APRESOLINE PO SCH ×2 (09:43→20:23)
[2019-09-10] MEDS: LACTULOSE PO SCH (09:43)
[2019-09-10] MEDS: WELLBUTRIN SR PO SCH ×2 (09:43→20:23)
[2019-09-10] MEDS: MOBIC PO SCH (09:43)
[2019-09-10] MEDS: COREG PO SCH ×2 (09:43→20:23)
[2019-09-10] MEDS: LIDODERM TOP SCH (09:44)
[2019-09-10] MEDS: HEPARIN SUBQ SCH ×2 (09:44→20:24)
[2019-09-10] MEDS: LANTUS INSULIN SUBQ SCH (09:45)
[2019-09-10] MEDS: GLUCOPHAGE XR PO SCH (09:45)
[2019-09-10] MEDS: ROBAXIN PO SCH (20:22)
[2019-09-10] MEDS: REMERON PO SCH (20:22)
[2019-09-10] MEDS: CELEXA PO SCH (20:23)
[2019-09-10] MEDS: SINGULAIR PO SCH (20:23)
[2019-09-10] MEDS: NEURONTIN PO SCH (20:23)
[2019-09-10] MEDS: LIPITOR PO SCH (20:23)
[2019-09-10] MEDS: NORCO-5 PO PRN (20:24)
[2019-09-11] MEDS: MAG-OX PO SCH ×2 (00:21→08:17)
[2019-09-11] MEDS: LACTULOSE PO SCH ×2 (00:21→08:19)
[2019-09-11] MEDS: HEPARIN SUBQ SCH ×3 (00:22→09:44)
[2019-09-11] MEDS: LINZESS PO SCH (06:05)
[2019-09-11] MEDS: NORCO-5 PO PRN ×3 (06:05→17:34)
[2019-09-11] MEDS ORDERED: ZOFRAN PO PRN (07:30)
[2019-09-11] MEDS: COREG PO SCH (08:17)
[2019-09-11] MEDS: PRILOSEC PO SCH (08:17)
[2019-09-11] MEDS: DEPAKOTE SPRINKLE PO SCH (08:17)
[2019-09-11] MEDS: MOBIC PO SCH (08:18)
[2019-09-11] MEDS: COLACE PO SCH (08:18)
[2019-09-11] MEDS: WELLBUTRIN SR PO SCH (08:18)
[2019-09-11] MEDS: GLUCOPHAGE XR PO SCH (08:18)
[2019-09-11] MEDS: APRESOLINE PO SCH (08:18)
[2019-09-11] MEDS: LANTUS INSULIN SUBQ SCH (08:19)
[2019-09-11] MEDS: LIDODERM TOP SCH (08:24)
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
[2019-09-11 20:39] VITALS: BP 136/68
== END 2019-09-11 20:47 | disposition home health service (06) | DRG 313 ==
LOC: SUPCPDRO → ED 06:48 → EDIPHOLD 06:49 → 4N 17:49
PROVIDERS: ATTEND Emergency Medicine

== ENCOUNTER 2019-10-08 17:35 | Observation (INO) ==
--- NOTE | 2019-10-08 18:17 | EKG Report ---
Test Performed on : 10/08/2019 6:02:20 PM Test Reason : Stroke like symptoms Blood Pressure : / mmHG Vent. Rate : 100 BPM Atrial Rate : 100 BPM P-R Int : 190 ms QRS Dur : 088 ms QT Int : 388 ms P-R-T Axes : 067 080 058 degrees QTc Int : 500 ms Normal sinus rhythm. Prolonged QT Abnormal ECG When compared with ECG of 08-OCT-2019 18:01, (Unconfirmed) No significant change was found Unconfirmed Result
--- NOTE | 2019-10-08 18:21 | Diag Imaging Result Doc PS360 ---
EXAM: CT HEAD W/O CONTRAST 10/08/2019 HISTORY: stroke like symptoms TECHNIQUE: This exam was performed using automated exposure control, adjustment of mA or kV according to patient size, and/or use of iterative reconstruction technique. COMMENT: There is a large area of encephalomalacia in the fronto temporal parietal cortex and subcortical white matter, including the insula on the right. This has evolved since the previous study of 02/15/2019 at which time the infarct in question was presumably subacute. Rather than mass effect associated with the previous study, there is ex vacuo enlargement of the right lateral ventricle. There is no evidence of bleed or abnormal extra-axial fluid collection. There is some lucency present in the right cerebellar peduncle and midbrain as well as the right side of the mid cathy. This may be related to wallerian degeneration secondary to the large right middle cerebral artery infarct. This is more conspicuous than on the previous study. The calvarium is intact. The visualized paranasal sinuses are clear. IMPRESSION: Old right middle cerebral artery infarct. No evidence of acute disease. Given the chronic findings further evaluation with MRI may be desirable. Electronically signed by Cristian Rajan 10/08/2019 6:17 PM
--- NOTE | 2019-10-08 18:22 | Diag Imaging Result Doc PS360 ---
EXAM: CHEST-PORTABLE 10/08/2019 HISTORY: stroke like symptoms TECHNIQUE: AP upright chest at 1815 COMMENT: There is a linear opacity on the right which was also present on 09/05/2019 and is presumably due to fibrosis. Overall the appearance the chest has not changed significantly. The heart size and pulmonary vascularity are within normal limits. IMPRESSION: Stable chest. Electronically signed by Cristian Rajan 10/08/2019 6:18 PM
[2019-10-08 18:38] LABS: BASO# 0.04 X1000 (0.0-0.2); BASO% 0.3 % (0.0-0.8); EOS% 2.9 % (0.0-10.0); IMM GRAN# 0.13 X1000 (0.0-0.04); LYMPH# 1.86 X1000 (1.2-3.4); LYMPH% 13.7 % (20.5-51.1); MCH 29.3 PG (27-31); MCHC 31.7 g/dL (33-37); MCV 92.3 FL (81-99); MONO# 0.65 X1000 (0.11-0.59); MONO% 4.8 % (1.7-9.3); MPV 10.8 FL (7.4-10.4); NEUT# 10.52 X1000 (1.4-6.5); NEUT% 77.3 % (42.2-75.2); PLT 313 X1000 (130-400); RBC 4.44 XMIL (4.2-5.4); RDW 14.3 % (11.5-14.5)
--- NOTE | 2019-10-08 18:58 | PROVIDER DOCUMENTATION ---
HPI-Neurological Disorder - General Chief Complaint: Stroke-Like Symptoms Stated Complaint: STROKE LIKE SX Time Seen by Provider: 10/08/19 17:43 Source: patient, EMS Allergies/Adverse Reactions: Patient Allergies Allergy/AdvReac Type Severity Reaction Status Date / Time No Known Allergies Allergy Verified 10/08/19 18:34 Home Medications: Home Medication List Medication Instructions Recorded Confirmed Last Taken Type Atorvastatin Calcium 40 mg PO HS 09/05/19 09/05/19 09/04/19 21:00 History 40 MG Bupropion S.r. [Wellbutrin Sr] 150 mg PO BID 09/05/19 09/05/19 09/05/19 08:00 History 150 MG Carvedilol [Coreg] 6.25 mg PO BID 09/05/19 09/05/19 09/05/19 08:00 History 6.25 mg Citalopram Hydrobromide 40 mg PO HS 09/05/19 09/05/19 09/04/19 21:00 History [Citalopram HBr] 40 MG Divalproex Sodium 125 mg PO BID 09/05/19 09/05/19 09/05/19 08:00 History 125 MG Docusate Sodium 100 mg PO BID 09/05/19 09/05/19 09/05/19 08:00 History 100 MG Gabapentin 300 mg PO HS 09/05/19 09/05/19 09/04/19 21:00 History 300 MG Hydralazine HCl 25 mg PO BID 09/05/19 09/05/19 09/05/19 08:00 History 25 MG Hydrocodone/Acetaminophen 1 - 2 tab PO Q4H PRN PRN 09/05/19 09/05/19 Unknown History [Hydrocodone-Acetamin 5-325 mg] Insulin Glargine [Lantus Insulin] 15 units SQ DAILY 09/05/19 09/05/19 09/05/19 09:00 History 15 UNITS Lidocaine 1 patch TOP DAILY 09/05/19 09/05/19 09/05/19 08:00 History 1 patch Linaclotide [Linzess] 72 mcg PO DAILY 09/05/19 09/05/19 09/05/19 08:00 History 72 mcg Lorazepam 0.5 mg PO BID 09/05/19 09/05/19 09/05/19 08:00 History 0.5 MG Meloxicam 15 mg PO DAILY 09/05/19 09/05/19 09/05/19 08:00 History 15 mg Metformin E.r. [Glucophage Xr] 2 tab PO DAILY 09/05/19 09/05/19 09/05/19 08:00 History 1000 MG Methocarbamol 500 mg PO Q8H PRN PRN 09/05/19 09/05/19 Unknown History Methocarbamol 750 mg PO HS 09/05/19 09/05/19 09/04/19 21:00 History 750 MG Mirtazapine [Remeron] 15 mg PO HS 09/05/19 09/05/19 09/04/19 21:00 History 15 MG Montelukast Sodium 10 mg PO HS 09/05/19 09/05/19 09/04/19 21:00 History 10 MG Olanzapine 7.5 mg PO HS 09/05/19 09/05/19 09/04/19 21:00 History 7.5 MG Pantoprazole Sodium 40 mg PO DAILY 09/05/19 09/05/19 09/05/19 08:00 History 40 mg Lactulose 30 ml PO BID 30 Days #1 udc 09/11/19 Unknown Rx - History of Present Illness-Neuro Nature of Presenting Problem: Patient with previous CVA w/l sided weakness, DM, HTN was brought in by EMS today after son ania called reporting AMS. EMS states that patient was awake on arrival at 4:40pm and only gave a blank stare without proper response and that pt started taking on arrival at the ED. Patient could not give account of what happened Onset/Duration: reports: other (AMS today) Timing: reports: improving Context: reports: none Character of Altered Mental Status: reports: confused Any recent trauma/injury?: reports: none New weakness or altered sensation location:: reports: none Cognitive Baseline: alert, oriented x3 Associated Symptoms: reports: confusion Similar Symptoms Previously?: Yes Recently seen or treated by another doctor?: Yes - Seizure First time to have a seizure?: No Witnessed seizure?: No Review of Systems - Adult - REVIEW OF SYSTEMS - ADULT Constitutional: reports: no symptoms reported Eyes: reports: no symptoms reported Ears, Nose, Mouth & Throat: reports: no symptoms reported Cardiovascular: reports: no symptoms reported Respiratory: reports: no symptoms reported Gastrointestinal: reports: no symptoms reported Genitourinary: reports: no symptoms reported Musculoskeletal: reports: no symptoms reported Integumentary: reports: no symptoms reported Neurological: reports: see HPI Psychiatric: reports: no symptoms reported Endocrine: reports: no symptoms reported Hematologic/Lymphatic: reports: no symptoms reported Allergic/Immunologic: reports: no symptoms reported All Other Systems: Reviewed and Negative Past History - Adult - PAST MEDICAL HISTORY-ADULT Review of Records: reports: Nursing Assessment Review, Medications Reviewed, Social history reviewed & non-contributory. Respiratory: reports: denies history Gastrointestinal: reports: denies history Neurological: reports: CVA, stroke deficits (left sided) Psychiatric: reports: denies history - PRIOR SURGERIES/PROCEDURES Surgical/Procedure History: denies: recent surgery - FAMILY HISTORY Family History: reviewed, not pertinent - SOCIAL HISTORY Smoking: other (former smoker) Substance Use: denies Living Situation: family Physical Exam- Neurological - Physical Exam-Neuro General Appearance: appears well, alert, no apparent distress Eye Exam: bilateral eye: PERRL, EOMI HENMT: normocephalic/atraumatic, moist mucous membranes, normal ENT inspection Head Injury: no evidence of injury Neck: non-tender, full range of motion, supple Respiratory: chest non-tender, lungs clear, normal breath sounds Cardiovascular: regular rate, rhythm, no edema Abdominal Exam: non tender, soft Extremity: non-tender, no calf tenderness delivery table feeder Exam: PERRL Motor/Sensory: weak motor strength LUE, weak motor strength RLE (able to move RLE but not against gravity), weak motor strength LLE Neurologic: delivery table feeder II-XII nml as tested Integumentary: normal color Psych/Mental Status: oriented x 3 - Glascow Coma Scale Best Eye Response: (4) open spontaneously Best Verbal Response: (5) oriented Best Motor Response: (6) obeys commands Progress - PLAN OF CARE/RESULTS Progress/Plan/Lab Results: Vital Signs - 8 hr 10/08/19 17:48 10/08/19 17:51 10/08/19 17:54 Temperature 97.5 F L Pulse Rate 100 H Respiratory Rate 16 Blood Pressure 101/77 101/77 O2 Sat by Pulse Oximetry 97 96 97 10/08/19 18:00 10/08/19 18:22 10/08/19 18:30 Temperature Pulse Rate 92 H 90 Respiratory Rate Blood Pressure 95/61 O2 Sat by Pulse Oximetry 97 95 95 10/08/19 18:31 10/08/19 19:00 10/08/19 19:01 Temperature Pulse Rate 93 H 96 H 95 H Respiratory Rate Blood Pressure 107/67 97/75 O2 Sat by Pulse Oximetry 95 97 97 Laboratory Results - last 24 hr 10/08/19 10/08/19 10/08/19 17:56 18:24 18:24 WBC 13.60 H RBC 4.44 Hgb 13.0 Hct 41.0 MCV 92.3 MCH 29.3 MCHC 31.7 L RDW Std Deviation 14.3 Plt Count 313 MPV 10.8 H Immature Gran % (Auto) 1.0 H Neut % (Auto) 77.3 H Lymph % (Auto) 13.7 L Bulloch % (Auto) 4.8 Eos % (Auto) 2.9 Baso % (Auto) 0.3 Immature Gran # (Auto) 0.13 H Neut # (Auto) 10.52 H Lymph # (Auto) 1.86 Bulloch # (Auto) 0.65 H Eos # (Auto) 0.40 Baso # (Auto) 0.04 PT INR PTT (Actin FS) Specimen Type Sample Site pH pCO2 pO2 HCO3 Base Excess Oxyhemoglobin ABG O2 Sat (Calculated) ABG O2 Saturation ABG Carboxyhemoglobin ABG Methemoglobin Rubens Test A-a O2 Difference Total Hemoglobin Lactate Blood Gas Modality FiO2 % Sodium 138 Potassium 4.8 Chloride 100 Carbon Dioxide 14 L Anion Gap 24 BUN 20 Creatinine 1.2 H Estimated GFR/1.73 m2 46 BUN/Creatinine Ratio 17 Glucose 159 H POC Glucose 136 H D Calculated Osmolality 282 Calcium 9.6 Total Bilirubin 0.30 AST 10 ALT 5 L Alkaline Phosphatase 80 Troponin T Total Protein 6.2 L Albumin 3.5 Globulin 2.7 Albumin/Globulin Ratio 1.3 10/08/19 10/08/19 10/08/19 18:24 18:24 21:00 WBC RBC Hgb Hct MCV MCH MCHC RDW Std Deviation Plt Count MPV Immature Gran % (Auto) Neut % (Auto) Lymph % (Auto) Bulloch % (Auto) Eos % (Auto) Baso % (Auto) Immature Gran # (Auto) Neut # (Auto) Lymph # (Auto) Bulloch # (Auto) Eos # (Auto) Baso # (Auto) PT 15.6 INR 1.22 PTT (Actin FS) 29.4 Specimen Type ARTERIAL Sample Site R RADIAL pH 7.37 pCO2 27 L pO2 81 HCO3 18.6 L Base Excess -8.1 L Oxyhemoglobin 95.5 ABG O2 Sat (Calculated) 18.2 ABG O2 Saturation 98.5 ABG Carboxyhemoglobin 1.90 ABG Methemoglobin 1.1 Rubens Test YES A-a O2 Difference 35.0 Total Hemoglobin 13.5 Lactate 0.80 Blood Gas Modality ROOM AIR FiO2 % 21.0 Sodium Potassium Chloride Carbon Dioxide Anion Gap BUN Creatinine Estimated GFR/1.73 m2 BUN/Creatinine Ratio Glucose POC Glucose Calculated Osmolality Calcium Total Bilirubin AST ALT Alkaline Phosphatase Troponin T 0.032 Total Protein Albumin Globulin Albumin/Globulin Ratio Orders Category Date Time Status Cardiac Monitoring DIRECTED Care 10/08/19 18:00 Active Cardiac Monitoring DIRECTED Care 10/08/19 19:31 Active Finger Stick Blood Sugar (ED) DIRECTED Care 10/08/19 18:00 Active Gonzalez Cath Insertion ORDERED Care 10/08/19 19:33 Active IV Insertion ORDERED Care 10/08/19 19:31 Active Notify MD of + Sepsis Screen NOW Care 10/08/19 19:31 Active Notify Physician As Ordered Care 10/08/19 19:31 Active Saline Loc NOW Care 10/08/19 18:00 Active CHEST-PORTABLE [RAD] Stat Exams 10/08/19 18:[address] HEAD W/O CONTRAST [CT] Stat Exams 10/08/19 18:00 Completed ABG [RESP] Routine Lab 10/08/19 21:00 Completed BLOOD CULTURE [BLDCUL] Stat Lab 10/08/19 19:31 Uncollected CBC WITH ELECTRONIC DIFF [HEME] Stat Lab 10/08/19 18:24 Completed CK PROFILE [SP CHEM] Stat Lab 10/08/19 19:31 Uncollected COMPREHENSIVE METABOLIC PANEL [CHEM] Stat Lab 10/08/19 18:24 Completed LACTATE, PLASMA [CHEM] Lab 10/08/19 19:45 Uncollected LACTATE, PLASMA [CHEM] Lab 10/08/19 22:45 Uncollected LACTATE, PLASMA [CHEM] Lab 10/09/19 01:45 Uncollected PROTIME WITH INR [COAG] Stat Lab 10/08/19 18:24 Completed PTT [COAG] Stat Lab 10/08/19 18:24 Completed TROPONIN T Stat Lab 10/08/19 18:24 Completed URINALYSIS W/POSS RFLX CULT [URINALYSIS] Stat Lab 10/08/19 18:00 Uncollected URINE DRUG SCREEN Stat Lab 10/08/19 18:00 Uncollected 0.9% Sodium Chloride Inj [Ns] 1,000 ml Med 10/08/19 20:35 Active IV 999 mls/hr Aspirin Med 10/08/19 20:58 Discontinued 162 mg PO NOW ONE Oxygen Device Stat Oth 10/08/19 19:31 Active EKG [EKG] Stat Ther 10/08/19 18:00 Draft Result Diagrams: 10/08/19 18:24 10/08/19 18:24 - REASSESSMENT Reassessment #1 Time Reassessed: 20:52 Status: improving (patient seen, no more allert, AAOx3, now remembered the name of the president. No able to move the right leg against gravity for more than 5 seconds. Son ania who called ems is at bed side with Pt,s daughter. Son ania reports that she saw her altered with jerky movement on the RUE and eye,s rolled back prior to calling EMS. Ems had reported that patient had a blank stare. so seizures cannot be ruled out. She does have low CO2 and anion gap of 24, will do an ABG and call for admission) - XRAY 1 XRAY Study: Chest Impression: See EMR Report (nothing acute) - CT/MRI 1 MRI Study: Head Impression: See EMR Report ( IMPRESSION: Old right middle cerebral artery inf arct. No evidence of acute disease. Given the chronic findings further evaluation with MRI may be desirable.) - CONSULTS/PCP/HOSPITALIST Notification #1 *Consult/PCP/Hospitalist*: Dr Sanchez Time Discussed: 21:25 Consult Disposition: Admit (Accepts admission) Departure - Departure Date of Disposition Decision: 10/08/19 Time of Disposition Decision: 21:24 DIAGNOSIS: AMS (altered mental status) Qualifiers: Altered mental status type: transient alteration of awareness Qualified Code(s): R40.4 - Transient alteration of awareness Disposition: ADMITTED INPATIENT 09 Certified Medical Emergency: Emergent Condition: Fair Referrals and Follow-Ups: Juju Kohler [Primary Care Provider] - - Critical Care Note This patient required my direct & personal management of CC.: No Attestation - Physician/ LATRICE Attestation Patient care was provided by Advanced Practice Provider:: No The physician spent face to face time with patient:: Yes Advanced Practice Provider documentation review:: Supervising physician onsite and consulted in the evaluation and care of this patient. The physician did have a face to face encounter with the patient. - NIH Stroke Scale NIH Type: Initial Evaluation Level of Consciousness: 0-Alert Visual (use finger movement, counting or visual threat): 0-No Visual Loss Facial Palsy (show teeth or raise eyebrows & close eyes tght: 0-Symmetrical Movement Motor Function-left arm: 0-Normal Motor Function-right arm: 0-Normal Motor Function-left le-No Movement Motor Function-right le-Some Effort Against [place] Best Language(name item/read sentence.Ex-Down to Earth): 0-No Aphasia Dysarthria(Pt read words or say words Ex.Mama,Tip-Top,Thanks: 0-Normal Articulation Extinction and Inattention: 0-Normal
[2019-10-08 19:01] LABS: INR 1.22; PROTIME 15.6 Seconds (11.0-16.0); PTT 29.4 Seconds (22.3-41.8)
[2019-10-08 19:08] LABS: ALB/GLOB RATIO 1.3; ALBUMIN 3.5 g/dL (3.5-5.0); CALCIUM 9.6 mg/dL (8.8-10.2); CREATININE 1.2 mg/dL (0.5-0.9); POTASSIUM 4.8 mmol/L (3.5-5.1); TOTAL BILIRUBIN 0.3 mg/dL (0.20-1.00); TOTAL PROTEIN 6.2 g/dL (6.3-8.3)
[2019-10-08] MEDS ORDERED: NS 1,000 ML IV ONE (20:35)
[2019-10-08] MEDS ORDERED: ASPIRIN PO ONE (20:58)
[2019-10-08 21:09] LABS: ALLEN TEST YES; BE -8.1 mmoll (-3.0-3.0); BLOOD TYPE ARTERIAL; HCO3-(ACT) 18.6 mmoll (20.0-26.0); METHB 1.1 % (0.0-1.5); O2(CT) 18.2 mL/dL (15.0-23.0); O2HB 95.5 % (95.0-99.0); PCO2(98.6) 27 mmHg (35-45); PO2(98.6) 81 mmHg (60-100); SAMPLE BLOOD; SAO2 98.5 % (95.0-100.0); THB 13.5 g/dL (11.5-17.4); pH(98.6) 7.37 (7.35-7.45)
[2019-10-08 21:10] LABS: MODALITY ROOM AIR
[2019-10-08 21:47] LABS: URINE SOURCE CLEAN CATCH
[2019-10-08 22:07] LABS: BILIRUBIN URINE NEGATIVE (NEGATIVE); BLOOD URINE NEGATIVE (NEGATIVE); COLOR YELLOW; GLUCOSE URINE NEGATIVE (NEGATIVE); LEUKOCYTES URINE NEGATIVE (NEGATIVE); NITRITE URINE NEGATIVE (NEGATIVE); PH URINE 5.5; PROTEIN URINE TRACE mg/dL (NEGATIVE); SP GRAVITY URINE 1.025; TURBIDITY URINE CLEAR (CLEAR); UROBILINOGEN URINE NORMAL (NORMAL)
[2019-10-08 22:14] LABS: KETONE URINE 100 mg/dL (NEGATIVE); UR EPITHELIAL CELLS <10 /HPF (<10); URINE BACTERIA NEGATIVE /HPF; URINE RBC <10 /HPF (<10); URINE WBC <10 /HPF (<10)
[2019-10-08 22:15] LABS: UR AMPHETAMINES QUAL NONE DETECTED (NONE DETECT); UR BARBITUATES QUAL NONE DETECTED (NONE DETECT); UR BENZODIAZEPIN QUAL NONE DETECTED (NONE DETECT); UR CANNABINOIDS QUAL NONE DETECTED (NONE DETECT); UR COCAINE QUAL NONE DETECTED (NONE DETECT); UR METHADONE QUAL NONE DETECTED (NONE DETECT); UR OPIATES QUAL NONE DETECTED (NONE DETECT); UR OXYCODONE QUAL NONE DETECTED (NONE DETECT); UR PCP QUAL NONE DETECTED (NONE DETECT)
[2019-10-08] MEDS: NORCO-5 PO PRN (23:29)
[2019-10-09] MEDS ORDERED: TYLENOL PO PRN
--- NOTE | 2019-10-09 00:42 | HISTORY AND PHYSICAL ---
PRIMARY CARE PHYSICIAN: Dr. Juju Kohler. CHIEF COMPLAINT: Altered mental status, right-sided weakness. HISTORY OF PRESENTING ILLNESS: A 59-year-old female with a history of CVA with left-sided deficit, diabetes mellitus type 2, hypertension, hyperlipidemia, who had presented to emergency department due to patient having an episode where she became confused and somewhat altered. She was also having some right-sided weakness. The patient was brought to the emergency department and evaluated in the ED and during her evaluation her symptoms had resolved. It was suspected possibly she had a TIA. Due to her presenting symptoms, she will require admission for further management. At the time of my examination, patient had denied any headache, fever, chills, chest pain, shortness of breath or any weight changes. States she feels better. PAST MEDICAL HISTORY: Includes CVA with left-sided deficit, diabetes mellitus type 2, hypertension, hyperlipidemia, hypothyroidism. PAST SURGICAL HISTORY: Hysterectomy. ALLERGIES: No known drug allergies. CURRENT MEDICATIONS: Include atorvastatin 40 mg p.o. at bedtime, bupropion 150 mg p.o. b.i.d., carvedilol 6.25 mg p.o. b.i.d., citalopram 40 mg p.o. at bedtime, divalproex 125 mg p.o. b.i.d., gabapentin 300 mg p.o. at bedtime, hydralazine 25 mg p.o. b.i.d., [place] 5 one p.o. q.4 hours, Lantus 15 units subcutaneous daily, lactulose 30 mL p.o. b.i.d., meloxicam 50 mg p.o. daily, lorazepam 0.5 mg p.o. b.i.d., metformin 1000 mg p.o. daily, Remeron 50 mg p.o. at bedtime, Singular 10 mg p.o. at bedtime, olanzapine 7.5 mg p.o. at bedtime, pantoprazole 40 mg p.o. daily. SOCIAL HISTORY: She is a former smoker. No history of alcohol or illicit drug use. FAMILY HISTORY: No history of coronary artery disease. REVIEW OF SYSTEMS: Fourteen point review of system as listed in HPI. Other systems negative. PHYSICAL EXAMINATION: GENERAL: Cooperative, friendly female. She is resting more comfortably now. VITAL SIGNS: Temperature 97.5 degrees, pulse 100, respirations 16, blood pressure 101/77. HEENT: Atraumatic, normocephalic. Extraocular movements intact. PERRLA. NECK: No masses. CHEST: Clear to auscultation. CARDIOVASCULAR: Regular rate and rhythm. ABDOMEN: Soft. Positive bowel sounds. EXTREMITIES: No edema. NEUROLOGIC: She is awake, alert, oriented x3. Strength of 5/5 right upper and lower extremity, 0/5 left upper extremity and 3/5 left lower extremity. GENITOURINARY: No bladder distention. SKIN: Warm. LABORATORIES AND STUDIES: Sodium 138, potassium 4.8, chloride 100, CO2 is 14, BUN is 20, creatinine is 1.2, glucose is 159. Troponin 0.032. WBC 13.60, hemoglobin 13.1, hematocrit 41.0, platelets 313,000. UA negative for nitrite, negative for leukocytes. CT of the head shows old middle right middle cerebral infarct, no evidence of any acute disease. ASSESSMENT: This is a 59-year-old female with a history of cerebrovascular accident with left- sided deficit, diabetes mellitus type 2, hypertension, hyperlipidemia, who had presented to emergency department due to patient having some mental status changes and confusion. She was also having some right-sided weakness. When the patient came to the emergency department, her symptoms seemed to resolve; however, due to suspicion of TIA she will require admission for further management. 1. Altered mental status. 2. Transient ischemic attack. We will need to rule out cerebrovascular accident. 3. Diabetes mellitus type 2. 4. Hypertension. PLAN: 1. We will admit patient to medical floor with telemetry. 2. We will continue with neuro checks. 3. Consult Neurology. 4. We will wait for neurology evaluation to see if a repeat MRA is needed. 5. We will monitor blood glucose and put patient on sliding scale insulin regimen. 6. We will monitor blood pressure. Resume antihypertensive agent. 7. Put patient on DVT prophylaxis with SCDs. 8. We will continue to follow, reassess and make further recommendation based on patient's clinical course. cc: Carlo Sanchez MD
[2019-10-09] MEDS ORDERED: TUMS EXTRA STRENGTH PO ONE (01:36)
[2019-10-09] MEDS: ZOFRAN IV PRN ×2 (01:54→10:41)
[2019-10-09 04:05] LABS: BASO# 0.04 X1000 (0.0-0.2); BASO% 0.4 % (0.0-0.8); EOS# 0.09 X1000 (0.0-0.7); EOS% 0.9 % (0.0-10.0); HEMATOCRIT 41.1 % (37.0-47.0); HEMOGLOBIN 12.9 g/dL (12.0-16.0); IMM GRAN# 0.04 X1000 (0.0-0.04); IMM GRAN% 0.4 % (0.0-0.5); LYMPH# 1.93 X1000 (1.2-3.4); LYMPH% 19.4 % (20.5-51.1); MCH 29.6 PG (27-31); MCHC 31.4 g/dL (33-37); MCV 94.3 FL (81-99); MONO# 0.74 X1000 (0.11-0.59); MONO% 7.4 % (1.7-9.3); MPV 10.8 FL (7.4-10.4); NEUT# 7.11 X1000 (1.4-6.5); NEUT% 71.5 % (42.2-75.2); PLT 289 X1000 (130-400); RBC 4.36 XMIL (4.2-5.4); RDW 14.2 % (11.5-14.5); WBC 9.95 X1000 (4.8-10.8)
[2019-10-09 04:40] LABS: CALCIUM 9.5 mg/dL (8.8-10.2); CREATININE 1.1 mg/dL (0.5-0.9); POTASSIUM 4.4 mmol/L (3.5-5.1)
[2019-10-09] MEDS: HUMULIN R SUBQ SCH ×4 (06:19→21:38)
[2019-10-09] MEDS: NORCO-5 PO PRN ×2 (08:46→17:50)
--- NOTE | 2019-10-09 14:52 | CONSULTATION ---
DATE OF CONSULTATION: 10/09/2019 REASON FOR CONSULT: Altered mental status/TIA. HISTORY OF PRESENT ILLNESS: This is a 59-year-old, female with a history of a right MCA territory stroke in February of 2019 who was admitted yesterday with acute mental status change. History is from the patient. She states she was in her usual state of health before the event occurred. She recalls sending her daughter to the store. The next thing she remembers is being inside the ambulance. Her son-in-law told her that she was sitting in her bed and had sudden onset "convulsions". Her eyes were rolled back and she was foaming at the mouth. ER charting documents that EMS stated the patient was awake on arrival at 4:40 p.m. and only giving a blank stare without proper response but that she began talking on arrival to the emergency department. The patient does not recall any of this. She denies tongue biting or incontinence. She denies prior history of seizure. She reports taking lorazepam at night consistently and denies having that medication in recent days. She states that she takes aspirin occasionally but not daily. She thinks she might take Plavix but she is not certain about that. 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 FAMILY HISTORY: Positive for stroke in her sister and father. SOCIAL HISTORY: She was a smoker but quit in February of 2019 after her initial stroke. No alcohol or illicit substances. She lives in the home with her , daughter, and son-in-law. ALLERGIES: No known drug allergies. MEDICATIONS: Current and home medications were reviewed, in the chart. I see atorvastatin 40 mg at bedtime, bupropion, divalproex 125 mg p.o. b.i.d., gabapentin 300 mg at bedtime, Shel[place] 5 mg p.o. q.4 hours, lorazepam 0.5 mg p.o. b.i.d., olanzapine, Remeron, amongst others. I am not certain if this list is accurate. Those are her home medications. REVIEW OF SYSTEMS: Balance of 12 is conducted and is otherwise negative except as detailed in the HPI. She reported a headache which she had yesterday but not today. She has had some nausea. She reports pain to her left ankle or foot. She says that was from an injury she sustained while at a senior care. PHYSICAL EXAMINATION: Vital Signs: Afebrile, blood pressure 109/71, pulse 90s, respirations 18, 97% on room air. Ms Viveros is sitting up in bed, awake, alert, fully oriented. Speech is fluent. No language disturbance on brief bedside testing. Follows simple and complex commands. She does not participate fully with examination of her limbs. Pupils are equal, round, reactive to bright light. Gaze is conjugate. Ocular movements are full. She may have evidence of a left field cut, though difficult to say due to her participation level. She can hear. There is subtle flattening of the nasolabial fold on the left. Good activation. Tongue is midline. Palate elevates symmetrically. She does not shrug her shoulders for me. Facial sensation reported intact. She spontaneously moves her right arm and leg. She was grossly 4/5 at least on strength testing but again, does not participate well with this. I was not allowed to test her left arm and leg. Tone felt normal on the right. Reflexes diminished at the ankles, 2+ at the knees bilaterally, perhaps slightly more brisk on the left, 2+ at the biceps. She did not allow further testing. She did not participate with rapid alternating movements or [id number], or sensory testing. Plantar responses are flexor on the right, extensor on the left. No clonus on the right. I could not assess the left. I did not assess her gait, though she says she uses a wheelchair and does not walk. DIAGNOSTICS: A noncontrasted head CT showed evidence of a large old right MCA distribution infarct. No evidence of acute findings. This was personally reviewed also. Labs reviewed, in the chart. White count was 13.6 on admission. Today is normalized. Normal platelet count, sodium, BUN. Creatinine of 1.1. Blood sugar 119-159. Toxicology negative. ASSESSMENT AND PLAN: Probable seizure which could be symptomatic of her stroke in February of last year. Unfortunately, I was unable to obtain further history from family at bedside and also by calling the family on the phone. I am going to order a routine EEG. In looking at what may be her home medication list, which is extensive, I would recommend discontinuing bupropion. We may consider starting an antiepileptic medication. I believe MRI is planned and we can review that. Thank you for the consultation. Dwayne#: [id number] cc: Imani Pacheco MD MTDD
--- NOTE | 2019-10-09 20:02 | PROGRESS NOTE ---
DATE: 10/09/2019 SUBJECTIVE: Today Ms. Viveros referred to be doing well. I went in early on today and she was doing an EEG, so I went back again. She says she is doing well. She says she think she might have rolled her eyes over and has some shaking with foaming at her mouth and that is the reason why she was brought to the emergency room. She has a past history of past history of CVA with a left-sided hemiplegia. OBJECTIVE: Vital Signs: Currently her blood pressure is 117/59, pulse of 95, respirations 17, temperature 97.9 degrees. General: Ms. Viveros is a 59-year-old female. She is in bed, in no distress. Mucosa is pink and moist. Anicteric. Acyanotic. Neck: Supple. Chest: Clear to auscultation. No crepitations. No rhonchi. Gastrointestinal: Abdomen is soft. Central Nervous System: Patient is awake, alert, oriented. She has a dense left-sided hemiplegia. LABORATORY DATA: Reviewed. CBC is unremarkable. Chemistry shows creatinine 1.1. IMAGING STUDIES: Including a CT scan which was done on admission showed old right middle cerebral artery infarct. No evidence of acute disease. ASSESSMENT: 1. Altered mental status associated with what appears to be rolling eyes, convulsion, and foaming at the mouth, which are concerning for seizures. An EEG has been done this morning. We will be pending the report. We will also get an MRI of the brain. 2. History of cerebrovascular accident with left hemiplegia. CT scan of the brain does not show any acute abnormality. We will get an MRI. 3. Diabetes mellitus, controlled. 4. Hypertension, stable. cc: Jose Mcfadden MD
[2019-10-10] MEDS: NORCO-5 PO PRN ×2 (02:36→16:29)
[2019-10-10] MEDS: HUMULIN R SUBQ SCH ×2 (06:24→16:30)
--- NOTE | 2019-10-10 11:31 | Diag Imaging Result Doc PS360 ---
EXAM: MRI BRAIN W/WO CONTRAST 10/10/2019 HISTORY: recurrent CVA TECHNIQUE: T1 sagittal, axial and post gadolinium-enhanced axial with coronal reformation, axial T2, FLAIR, DWI and coronal gradient echo. COMMENT: There is increased T2-weighted signal intensity in the lower midbrain, right cerebral peduncle and cathy. There is extensive encephalomalacia and increased T2-weighted signal intensity in the right posterior frontal and adjacent parietal and temporal lobes as well as the insula on the right. There are small lacunar lesions and patchy increased T2-weighted signal intensity present in the subcortical white matter of the left parietal convexity. There is no evidence of bleed or abnormal extra-axial fluid collection. There is no evidence of abnormal contrast enhancement. There is no evidence of restricted diffusion. IMPRESSION: Large old right middle cerebral artery infarct with secondary changes in the right cerebral peduncle and cathy due to Wallerian degeneration. No evidence of acute intracranial disease. Electronically signed by Cristian Rajan 10/10/2019 11:29 AM
[2019-10-10 15:59] VITALS: BP 140/75
--- NOTE | 2019-10-10 18:46 | EEG REPORT ---
DATE: 10/09/2019 REFERRING: Imani Pacheco MD. CIGAR HEAD PEGGER: Leni Burton. BACKGROUND INFORMATION/TECHNIQUE: This is a digitally recorded routine EEG with video history. A 59-year-old female patient with history of large right MCA territory stroke in 2019, and residual left hemiparesis. She presented after having a seizure-like event. EEG is ordered to detect evidence of seizures. Medications include [place] p.r.n. EEG FINDINGS: A posterior dominant alpha rhythm is not seen. The background at maximal alertness consists of mixed alpha and beta range frequencies. Right hemispheric slowing is seen throughout the study. No definite epileptiform discharges. No seizures. Hyperventilation was not performed. Photic stimulation does not alter the record. The patient becomes drowsy, but stage II sleep is not seen. The EKG demonstrates regular RR intervals. IMPRESSION/CLINICAL CORRELATION: Abnormal routine EEG due to right hemispheric slowing which is indicative of cortical or subcortical abnormality in that area. This is likely the result of the patient's remote stroke in this region. No definite epileptiform discharges or seizures seen on the current study. This does not rule out an underlying seizure disorder. Clinical correlation is recommended. cc: Imani Pacheco MD
--- NOTE | 2019-10-12 08:52 | DISCHARGE SUMMARY ---
ADMISSION DATE: 10/08/2019 DISCHARGE DATE: 10/10/2019 DISPOSITION: Home. FOLLOW-UP: 1. Dr. Juju Kohler. 2. Dr. Imani aPcheco. CONSULTATION DURING THIS ADMISSION: Neurology was consulted; patient was seen by Dr. Pacheco. INVASIVE PROCEDURES DONE DURING THIS ADMISSION: None. IMAGING STUDIES OF SIGNIFICANCE: 1. A chest x-ray was done initially which was stable. 2. A CT scan of the head showed an old right middle cerebral territory infarct. No evidence of acute disease. 3. An MRI of the brain showed a large old right middle cerebral artery infarct with secondary changes in the right cerebral peduncles and cathy due to Wallerian degeneration. No evidence of intracranial disease. 4. An EEG showed slowing wave in the right hemisphere, which is indicative of cortical or subcortical abnormality in that area, likely the result of the patient's remote stroke. There was no definite epileptiform discharges or seizures seen. ADMISSION DIAGNOSES: 1. Altered mental status. 2. Transient ischemic attack. 3. Diabetes mellitus. 4. Hypertension. DIAGNOSES AT THE TIME OF DISCHARGE: 1. Altered mental status associated with rolling of eyes, shaking and foaming at the mouth concerning for seizure attack. The electroencephalogram was unremarkable. A magnetic resonance imaging shows an old infarct in the right middle cerebral artery territory. 2. History of cerebrovascular accident with left hemiplegia. 3. Diabetes mellitus. 4. Hypertension. 5. Hypothyroidism. DISCHARGE MEDICATIONS: 1. Carvedilol 6.25 b.i.d. 2. Colace 100 mg b.i.d. 3. Hydralazine 25 b.i.d. 4. Linzess 72 mcg p.o. daily. 5. Lorazepam 0.5 b.i.d. 6. Metformin 1000 p.o. daily. 7. Pantoprazole 40 mg p.o. daily. 8. Atorvastatin 40 mg p.o. daily. 9. Citalopram 40 mg p.o. daily. 10. Gabapentin 300 p.o. at bedtime. 11. Divalproex sodium 125 b.i.d. 12. Methocarbamol 750 p.o. q. 8 hours p.r.n. 13. Mirtazapine 50 mg p.o. at bedtime. 14. Montelukast 10 mg p.o. at bedtime. 15. Olanzapine 7.5 p.o. at bedtime. 16. Buspirone 15 mg p.o. b.i.d. 17. Levothyroxine 112 mcg p.o. daily. 18. Linagliptin 5 mg p.o. daily. 19. Lisinopril 40 mg p.o. at bedtime. 20. Oxy carbamazepine 300 mg b.i.d. for 3 days, 300 mg in the morning, 600 in the evening for another 3 days, and then 600 mg b.i.d. MEDICATION THAT HAS BEEN DISCONTINUED: Bupropion 150. PRESENTING COMPLAINT: Altered mental status, right-sided weakness. HISTORY OF PRESENT COMPLAINT: Ms. Viveros is a 59-year-old female with a history of a right MCA territory infarct with a dense left-sided hemiplegia, diabetes mellitus, hypertension, who came to the emergency department because of episode of acute onset of confusion associated with some foaming at the mouth and some convulsion. The patient was admitted initially to rule out any recurrent CVA. An initial CT scan of the head was unremarkable, except for an old encephalomalacia on the right MCA territory. Ms. Viveros was admitted for further medical care. HOSPITAL COURSE: Ms. Viveros was admitted to the medical floor with neuro checks and under telemonitoring. She did not have any more neurological event and no seizures during the hospital course. The patient was evaluated by Neurology and EEG was recommended, as well as an MRI, both of which were done. The patient was seen by Dr. Pacheco, who recommended that the patient's history was consistent with seizures. So, she decided to put the patient on oxy carbamazepine. All medication side effects, interactions were all discussed with the patient by her. Ms. Viveros's bupropion was also discontinued because of the risk of seizures. Ms. Viveros's other comorbidities, including her diabetes, hypertension, dyslipidemia, were all addressed during the hospital course. On the day of the discharge, Ms. Viveros refers to be doing better, has not had any seizures and no neurological event. She is awake, alert. She remains with a dense left hemiplegia. Her laboratory data had all been reviewed. The day of the discharge, her glucose was 101. All the discharge instructions have been discussed with her and she voiced understanding. DISCHARGE VITALS: Blood pressure was 140/75, pulse of 99, respiration was 19, temperature was 98 degrees. TIME SPENT FOR DISCHARGE: 35 minutes. cc: MD Juju Alvarez MD Raphael K. Quansah, MD
== END 2019-10-10 17:48 | disposition home health service (06) ==
LOC: SUPCPDRO → ED 17:35 → 3N 23:52 → INTOOBSV 23:52 → SUATTDRO 23:52
PROVIDERS: ATTEND Internal Medicine

== ENCOUNTER 2019-12-04 23:27 | Inpatient (IN) ==
[2019-12-05] MEDS ORDERED: NS 1,000 ML IV ONE (02:38)
[2019-12-05] MEDS ORDERED: ZOFRAN IV PRN (02:52)
[2019-12-05] MEDS: LOVENOX SUBQ SCH (03:28)
--- NOTE | 2019-12-05 04:38 | HISTORY AND PHYSICAL ---
CHIEF COMPLAINT: Constipation. HISTORY OF PRESENT ILLNESS: Ms. Viveros is a 59-year-old female who comes to us from [facility] after having a syncopal episode. She apparently has had nausea and vomiting for around a week. The entire family has had a viral illness. States that the last time that she vomited was yesterday. She has not been able hold down liquids. She felt as if she was constipated and she strained to use the bathroom and had a syncopal spell sitting on the toilet. She did not fall off the toilet or hit her head. She went into [facility] for evaluation and was transferred [facility] I believe at the patient's request. EKG was normal sinus rhythm with prolonged Qt interval. Laboratory data was grossly normal other than a mild elevation in her troponin but also her kidney function was decreased related to her dehydration. She had a creatinine of 1.6. I believe her baseline is around 1.1. She will be admitted for further evaluation and treatment. PAST MEDICAL HISTORY: CVA with left-sided deficit, diabetes mellitus type 2, hypertension, hyperlipidemia and hypothyroidism. PREVIOUS SURGICAL HISTORY: Hysterectomy. FAMILY HISTORY: Positive for coronary artery disease in her mother. She in her 60s. SOCIAL HISTORY: Former smoker. No alcohol. No illicit drugs. ALLERGIES: No known drug allergies. HOME MEDICATIONS: A list of medications have not been reconciled and were not charted on the paperwork from [facility]. The nurses are attempting to reconcile the medications with her pharmacy. These will be restarted when appropriate. REVIEW OF SYSTEMS: Fourteen-point review of systems conducted with the patient. She complains of mild abdominal pain, just a dull aching, especially in her lower quadrants bilateral of her abdomen, nausea and vomiting which stopped yesterday and constipation. All other systems reviewed and found to be negative. PHYSICAL EXAMINATION: VITAL SIGNS: Temperature 98, pulse 84, blood pressure 120/80, oxygen saturation 99% on room air. GENERAL: Pleasant 59-year-old female lying in the medical floor bed. She is alert and oriented times 3. HEENT: Head is atraumatic, normocephalic. Pupils equal, round and reactive to light. Extraocular eye movement is intact. Sclerae are anicteric. Conjunctiva is pink. Oral mucosa is dry. NECK: Supple. No JVD. No thyromegaly. Trachea is midline. No cervical lymphadenopathy. CARDIAC: S1, S2 appreciated. No murmurs, gallops, rubs. LUNGS: Clear to auscultation bilaterally. No rhonchi, wheezes, rales. Symmetric rise and fall with respirations. ABDOMEN: Decreased bowel sounds all four quadrants. No pulsatile mass. No organomegaly. It is soft, nondistended, tender in bilateral lower quadrants to palpation. GENITOURINARY: No bladder distention. Gonzalez catheter is in place, draining scant amounts of concentrated urine. EXTREMITIES: No clubbing, cyanosis or edema. Decreased pedal pulses, 1+ bilaterally. INTEGUMENTARY: Warm, dry and intact. There was tinting noticed to her skin. NEUROLOGICAL: Her left arm is flaccid. She has 1/5 strength in her left lower extremity. Foot drop is noted. This is from previous CVA. She is alert and oriented times 3. DIAGNOSTIC DATA: CT of the head shows encephalomalacia from previous CVA. X-ray was poorly penetrated. Will repeat this morning. LABORATORY DATA: WBC 10.7. Hemoglobin 11.9. Hematocrit 37.5. Platelet count 352. Sodium 138. Potassium 3.9. Chloride 100. Carbon dioxide 24. BUN 28. Creatinine 1.6. Glucose 100. Lactate was elevated at 2.7. Urine was unremarkable. Troponin was mildly elevated at 0.090. Reference range of this was 0.010 to 0.030. ASSESSMENT: 1. Syncope. 2. Acute kidney injury with chronic renal insufficiency. 3. Diabetes mellitus type 2. 4. Constipation. 5. Hypothyroidism. 6. Fluid volume depletion. PLAN: Admit patient to the medical floor. Will obtain a flat and upright x-ray of her abdomen. Give patient suppository to promote bowel movement. Will start MiraLAX b.i.d. Obviously we will rule out small bowel obstruction on the x-ray before giving these medications. Give one additional normal saline bolus and start normal saline at 100 ml an hour. Recheck laboratory data. Trend cardiac enzymes, however, this is likely related to the bump in her creatinine. She did not have any complaints of chest pain. Recheck lactate after bolusing is complete. Her syncopal episode appears to be related to orthostatic hypotension. She had poor venous return during straining and blacked out. Will place the patient on telemetry. Continue to check orthostatic blood pressures. The patient is primarily bedbound and wheelchair bound. She does not ambulate after her CVA. Will continue to monitor. Further recommendations per patient clinical course. Dictated by LUIS ARMANDO Thomas for Vee Fuentes MD cc: LUIS ARMANDO Thomas MD Faye Wilson, MD
[2019-12-05] MEDS: NS 1,000 ML IV SCH ×2 (05:30→16:05)
--- NOTE | 2019-12-05 05:31 | Diag Imaging Result Doc PS360 ---
EXAM: ABDOMEN FLAT/UPRIGHT HISTORY: constipation TECHNIQUE: Two views COMPARISON: None. FINDINGS: No free air beneath the diaphragm. No bowel obstruction. There is stool throughout the colon. There are surgical clips in the pelvis and scattered phleboliths. IMPRESSION: Mild constipation. Electronically signed by Chai Morgan 12/05/2019 5:29 AM
--- NOTE | 2019-12-05 05:40 | Diag Imaging Result Doc PS360 ---
EXAM: CHEST-PORTABLE HISTORY: baseline TECHNIQUE: Single view COMPARISON: 10/08/2019 FINDINGS: The lungs are well expanded. The heart is not enlarged. The vessels are not distended. There are increased interstitial markings in the lower right lung. These are more prominent than on the prior study. No effusion identified. IMPRESSION: Progressive fibrosis or fibrosis with small infiltrate in the lower right lung. Electronically signed by Chai Morgan 12/05/2019 5:37 AM
[2019-12-05] MEDS ORDERED: DULCOLAX PR ONE (05:44)
[2019-12-05 06:04] LABS: BASO# 0.01 X1000 (0.0-0.2); BASO% 0.1 % (0.0-0.8); EOS# 0.19 X1000 (0.0-0.7); EOS% 2.5 % (0.0-10.0); HEMATOCRIT 28.5 % (37.0-47.0); HEMOGLOBIN 8.7 g/dL (12.0-16.0); IMM GRAN# 0.05 X1000 (0.0-0.04); IMM GRAN% 0.7 % (0.0-0.5); LYMPH# 2.17 X1000 (1.2-3.4); LYMPH% 28.8 % (20.5-51.1); MCH 29.5 PG (27-31); MCHC 30.5 g/dL (33-37); MCV 96.6 FL (81-99); MONO# 0.49 X1000 (0.11-0.59); MONO% 6.5 % (1.7-9.3); NEUT# 4.63 X1000 (1.4-6.5); NEUT% 61.4 % (42.2-75.2); PLT 267 X1000 (130-400); RBC 2.95 XMIL (4.2-5.4); RDW 14.9 % (11.5-14.5); WBC 7.54 X1000 (4.8-10.8)
--- NOTE | 2019-12-05 06:17 | HISTORY AND PHYSICAL ---
ADDENDUM: Ms. Viveros came in having a syncopal spell while defecating. Prior to that, she had been having a lot of vomiting secondary to viral illness. No antecedent or current history of bleeding from any orifice. The patient denied any antecedent cardiorespiratory symptoms prior to blacking out. She was evaluated at [facility], and was noted to have a creatinine of 1.3 with prolonged QT interval. Her baseline creatinine is 1.1. PHYSICAL EXAMINATION: Patient is clinically intravascularly depleted as evidenced by dry oral mucosa, decreased skin turgor, and decreased pulse volume. She also has decreased bowel sounds, but no abdominal tenderness on exam. It was also noted that her blood pressure when she passed out was in the 80s, but since she has received 2 0.5 L of fluid her blood pressure is now 120 and heart rate of 93. PLAN: Patient is I believe mechanism of syncope due to the fact that the patient is intravascularly depleted. When she strains, this causes decreased venous return to her heart and decreased cardiac output which led to syncope. The patient will be given IV fluids aggressively to correct renal function and possible underlying hypotension. Withhold any antihypertensives medications. She is also constipated and we will get a flat and upright. Administer laxatives from above and below to induce defecation. cc: Vee Fuentes MD MTDD
[2019-12-05 06:40] LABS: ESTIMATED GFR 42
[2019-12-05 06:42] LABS: AGAP 11; ALBUMIN 2.2 g/dL (3.5-5.0); ALKALINE PHOSPHATASE 55 U/L (32-104); BUN 25 mg/dL (8-22); CALCIUM 7.6 mg/dL (8.8-10.2); CHLORIDE 109 mmol/L (98-107); COSMO 284; CREATININE 1.3 mg/dL (0.5-0.9); GLUCOSE 103 mg/dL (70-104); GOT 8 U/L (10-30); GPT < 5 U/L (10-36); POTASSIUM 3.5 mmol/L (3.5-5.1); SODIUM 140 mmol/L (136-145); TCO2 20 mmol/L (25-35); TOTAL BILIRUBIN < 0.15 mg/dL (0.20-1.00); TOTAL PROTEIN 4.4 g/dL (6.3-8.3)
[2019-12-05] MEDS ORDERED: APRESOLINE PO SCH (09:00)
[2019-12-05] MEDS: MIRALAX PO SCH ×2 (09:14→20:01)
[2019-12-05] MEDS: LEVAQUIN 750 MG/D5W 750 MG/150 ML IVPB IV SCH (09:14)
[2019-12-05] MEDS: BUSPAR PO SCH ×2 (09:14→20:00)
[2019-12-05] MEDS: CELEXA PO SCH (09:14)
[2019-12-05] MEDS: SENOKOT PO SCH (09:15)
[2019-12-05] MEDS: DEPAKOTE PO SCH (09:15)
[2019-12-05] MEDS: ATIVAN PO SCH ×2 (09:15→20:00)
[2019-12-05] MEDS: SYNTHROID PO SCH (09:15)
[2019-12-05] MEDS: COLACE PO SCH ×2 (09:15→20:00)
[2019-12-05] MEDS: ASPIRIN EC PO SCH (09:15)
--- NOTE | 2019-12-05 09:18 | Diag Imaging Result Doc PS360 ---
EXAM: CT THORAX W/O CONTRAST 12/05/2019 HISTORY: cough, fibrosis, ? pneumonia TECHNIQUE: This exam was performed using automated exposure control, adjustment of mA or kV according to patient size, and/or use of iterative reconstruction technique. COMMENT: There are no previous studies available for comparison. There is a large right pleural effusion and a smaller left pleural effusion. Some compressive atelectasis is present in both lower lobes particularly the right lower lobe. The possibility of underlying pneumonia in the right lower lobe cannot be excluded. There is some calcification in the left anterior descending coronary artery. There is no evidence of significant adenopathy. The regional skeleton is intact. There is no evidence of acute disease in the visualized portion of the abdomen. IMPRESSION: Pleural effusions and atelectasis. Electronically signed by Cristian Rajan 12/05/2019 9:15 AM
[2019-12-05] MEDS: TYLENOL PO PRN ×2 (10:39→20:00)
[2019-12-05] MEDS ORDERED: BLISTEX MEDICATED BERRY LIP BALM TOP PRN (10:40)
[2019-12-05] MEDS ORDERED: ANUSOL-HC SUPP PR PRN (12:12)
[2019-12-05] MEDS ORDERED: CALMOSEPTINE OINTMENT TOP PRN (13:21)
--- NOTE | 2019-12-05 13:36 | PROGRESS NOTE ---
DATE: 12/05/2019 INTERVAL HISTORY: The patient with still a little dyspnea. Minimal cough. No further dizziness or syncope. Admitted with nausea, vomiting for about a week and vasovagal syncope on the toilet. Not requiring oxygen although has intermittently had some mildly low saturations. Blood pressure remains on the low side but not frankly hypotensive. No new complaints. No acute events overnight. REVIEW OF SYSTEMS: Twelve point review of systems negative except as per interval history. LABORATORY DATA: WBC 7.5, hemoglobin 8.7, hematocrit 28.5, platelets 267,000. Sodium 140, potassium 3.5, BUN 25, creatinine 1.3, glucose 103. TSH 0.1. Initial troponin 80, repeat troponin 67. IMAGING: CT chest with large right pleural effusion and smaller left pleural effusion with some compressive atelectasis in both lower lobes, right greater than left. VITAL SIGNS: T-max 98.2 degrees, pulse 74, respirations 17, blood pressure 106/58, O2 saturation 94% on room air but as low as 90 on room air earlier. PHYSICAL EXAMINATION: General: No acute distress. Vital signs: As above. HEENT: Normocephalic, atraumatic. Slightly dry mucous membranes. Cardiovascular: Regular rate and rhythm. No murmurs noted. Pulmonary: Mildly decreased at both bases, right greater than left. Abdomen: Soft, nontender, nondistended. Bowel sounds slightly decreased but present. Extremities: Peripheral pulses intact. No clubbing or cyanosis. Neurologic: Cranial nerves grossly intact. No focal deficits identified. Psychiatric: Normal mood and affect. Awake, alert, oriented x3. ASSESSMENT AND PLAN: 1. Vasovagal syncope. The patient with intermittent nausea and vomiting and constipation for approximately a week followed by an episode of passing out on the toilet while straining. Patient also with low-normal blood pressure, all suggesting dehydration and vasovagal syncope. Some improvement in blood pressure with fluid resuscitation, which we will continue for now. Initial troponin minimally elevated but trending down on repeat. Does not appear to be acute coronary syndrome. Likely demand ischemia/type 2 myocardial infarction. 2. Likely acute kidney injury versus chronic kidney disease III. Patient with creatinine of 1.3 on admission. September of last year it was down as low as 0.5, but has had a couple of higher numbers since then, so it may be rapid progression of chronic kidney disease, but suspect mild acute kidney injury related to dehydration. 3. Diabetes mellitus. Good control currently. Monitor. 4. Hypertension. Holding home hydralazine in the setting of mildly low blood pressures. 5. Hypothyroidism. Continue home Synthroid. 6. Constipation. We will give fairly aggressive bowel regimen and try to get her cleaned out. 7. Pleural effusions. Some concern for possible infiltrate on initial chest x-ray. CT chest obtained to try and clarify. Shows a fairly large effusion on the right with atelectasis but no definite pneumonia. Uncertain why the effusion is present. We will go ahead and get a BNP and an echocardiogram to make sure she is not having some heart failure issues. Given blood pressure, I would be reluctant to diurese her right now anyway, but will monitor closely. No definite pneumonia identified but we will continue Levaquin for the moment. If she continues to not show any sign of infection, then we will likely stop that tomorrow.
[2019-12-06] MEDS: NS 1,000 ML IV SCH ×3 (02:20→22:00)
[2019-12-06] MEDS: CELEXA PO SCH (09:15)
[2019-12-06] MEDS: COLACE PO SCH ×2 (09:16→21:43)
[2019-12-06] MEDS: SYNTHROID PO SCH (09:16)
[2019-12-06] MEDS: SENOKOT PO SCH (09:16)
[2019-12-06] MEDS: DEPAKOTE PO SCH (09:17)
[2019-12-06] MEDS: BUSPAR PO SCH ×2 (09:17→21:43)
[2019-12-06] MEDS: ASPIRIN EC PO SCH (09:18)
[2019-12-06] MEDS: ATIVAN PO SCH ×2 (09:18→21:43)
[2019-12-06] MEDS: MIRALAX PO SCH ×2 (09:18→21:43)
[2019-12-06] MEDS: LOVENOX SUBQ SCH (09:19)
[2019-12-06] MEDS: LEVAQUIN 750 MG/D5W 750 MG/150 ML IVPB IV SCH (09:19)
[2019-12-06 11:01] LABS: BASO# 0.01 X1000 (0.0-0.2); BASO% 0.1 % (0.0-0.8); EOS# 0.31 X1000 (0.0-0.7); EOS% 4.4 % (0.0-10.0); HEMATOCRIT 28.9 % (37.0-47.0); HEMOGLOBIN 8.9 g/dL (12.0-16.0); IMM GRAN# 0.03 X1000 (0.0-0.04); IMM GRAN% 0.4 % (0.0-0.5); LYMPH# 2.53 X1000 (1.2-3.4); LYMPH% 35.6 % (20.5-51.1); MCHC 30.8 g/dL (33-37); MCV 97.3 FL (81-99); MPV 10.7 FL (7.4-10.4); NEUT# 3.72 X1000 (1.4-6.5); NEUT% 52.5 % (42.2-75.2); PLT 285 X1000 (130-400); RBC 2.97 XMIL (4.2-5.4)
[2019-12-06 11:16] LABS: AGAP 11; BUN 19 mg/dL (8-22); CALCIUM 8.1 mg/dL (8.8-10.2); CHLORIDE 111 mmol/L (98-107); COSMO 286; CREATININE 0.9 mg/dL (0.5-0.9); ESTIMATED GFR > 60; GLUCOSE 106 mg/dL (70-104); POTASSIUM 3.2 mmol/L (3.5-5.1); SODIUM 142 mmol/L (136-145); TCO2 20 mmol/L (25-35)
--- NOTE | 2019-12-06 13:50 | PROGRESS NOTE ---
DATE: 12/06/2019 INTERVAL HISTORY: No acute events overnight. Patient still complaining of some constipation, somewhat improved by enema yesterday. No new complaints. No acute events overnight. He still with some mild nonproductive cough. REVIEW OF SYSTEMS: Twelve point review of systems negative except as per interval history. LABORATORY: WBC 7.1, hemoglobin 8.9, hematocrit 28.9, and platelets 285,000. Sodium 142, potassium 3.2, BUN 19, creatinine 0.9 and glucose 106. BNP 16,500. IMAGING: CT chest with large right pleural effusion and smaller left pleural effusion with compressive atelectasis, but no obvious pneumonia. OBJECTIVE: Vital Signs: Temperature T-max 98.5 degrees, pulse 68, respirations 16, blood pressure 122/95, and O2 saturation 97% on room air. General: No acute distress. HEENT: Normocephalic, atraumatic. Moist mucous membranes. Cardiovascular: Regular rate and rhythm. No murmurs noted. Pulmonary: Mildly decreased at both bases, right greater than left, unchanged from previous. Abdomen: Soft. Nontender and nondistended. Bowel sounds essentially normal. Extremities: Peripheral pulses intact. No clubbing or cyanosis. Trace edema on the right. 1+ pitting edema on the left. Neurologic: Cranial nerves grossly intact aside from possible slight left facial droop. No new focal deficits identified, but left hemiparesis stable. Essentially, no movement of the left upper extremity with some contractures noted. Quite weak with perhaps 2 to 3/5 strength in the left lower extremity. Psychiatric: Largely normal mood and affect. Awake, alert, and oriented x3. ASSESSMENT AND PLAN: 1. Vasovagal syncope. The patient with reported nausea, vomiting and constipation for approximately a week prior to admission followed by an episode of passing out on the toilet while straining. The patient also with low normal blood pressure on admission suggesting dehydration. Has had some overall improvement in blood pressure with gentle hydration although blood pressure remains on the low end of normal. Initial troponin minimally elevated but trended down on repeat. Likely demand ischemia/type 2 myocardial infarction. No evidence of acute coronary syndrome. No further nausea or vomiting here. We will continue some gentle fluids and monitor. 2. Acute kidney injury. The patient with mildly elevated creatinine on admission 1.3, has improved to 0.9 with hydration. It has been as low as 0.5 in the last few months. We will continue gentle fluids and monitor. 3. Diabetes mellitus good control currently. Monitor. 4. Hypertension. Holding home hydralazine given her ongoing low normal to mildly hypotensive blood pressures. 5. Hypothyroidism. TSH within normal limits. Continue on Synthroid. 6. Constipation, improving with aggressive bowel regimen. 7. Pleural effusions, elevated BNP, and possible chronic congestive heart failure. There was initially concern for possible pneumonia based on initial chest x-ray, but CT chest showed fairly large effusion on the right with atelectasis, but no clear sign of pneumonia. Patient has had no fever, no white count so she does not appear to be infected. Stopping Levaquin. We got a BNP for further evaluation, which was markedly elevated at approximately 16,000. Reluctant to give any diuresis given low blood pressure, but getting an echocardiogram to further evaluate. Depending on the results, she may need to be seen by Cardiology. 8. Asymmetric lower extremity edema. The patient with trace edema on the right and 1+ on the left. Her left leg is unaffected by her previous strokes. She also says she has had some trauma to that leg previously and states this may be all chronic, but we will go ahead and get an ultrasound to rule out DVT. 9. Disposition: Blood pressure remains a little on the low side but stable and then somewhat improved from admission. Evaluating for heart failure, that may need to be further addressed. Patient is nonambulatory at baseline secondary to previous stroke with significant left hemiparesis. Monitoring off antibiotics.
[2019-12-06] MEDS: TYLENOL PO PRN (22:57)
[2019-12-07 06:36] LABS: BASO# 0.02 X1000 (0.0-0.2); BASO% 0.3 % (0.0-0.8); EOS# 0.54 X1000 (0.0-0.7); EOS% 8.8 % (0.0-10.0); HEMATOCRIT 30.7 % (37.0-47.0); HEMOGLOBIN 9.3 g/dL (12.0-16.0); IMM GRAN# 0.04 X1000 (0.0-0.04); IMM GRAN% 0.7 % (0.0-0.5); LYMPH# 2.25 X1000 (1.2-3.4); LYMPH% 36.8 % (20.5-51.1); MCH 29.5 PG (27-31); MCHC 30.3 g/dL (33-37); MCV 97.5 FL (81-99); MONO# 0.66 X1000 (0.11-0.59); MONO% 10.8 % (1.7-9.3); MPV 10.6 FL (7.4-10.4); NEUT# 2.61 X1000 (1.4-6.5); NEUT% 42.6 % (42.2-75.2); PLT 290 X1000 (130-400); RBC 3.15 XMIL (4.2-5.4); RDW 15.4 % (11.5-14.5); WBC 6.12 X1000 (4.8-10.8)
[2019-12-07 07:04] LABS: AGAP 10; BUN 14 mg/dL (8-22); CALCIUM 7.9 mg/dL (8.8-10.2); CHLORIDE 109 mmol/L (98-107); COSMO 278; CREATININE 0.8 mg/dL (0.5-0.9); ESTIMATED GFR > 60; GLUCOSE 92 mg/dL (70-104); POTASSIUM 3.1 mmol/L (3.5-5.1); SODIUM 139 mmol/L (136-145); TCO2 20 mmol/L (25-35)
[2019-12-07] MEDS ORDERED: KLOR-CON PO ONE (07:05)
[2019-12-07] MEDS ORDERED: LASIX IV ONE (07:09)
--- NOTE | 2019-12-07 07:48 | PROGRESS NOTE ---
DATE: 12/07/2019 SUBJECTIVE: The patient reports feeling fine. Denies any shortness of breath. Upon my examination, she is not requiring any oxygen supplementation. OBJECTIVE: Vital Signs: Temperature 98.2 degrees, heart rate 78, respiratory rate 18, blood pressure 94/52, O2 saturation 100% on room air. General: This is a chronically ill-appearing, 59- year-old, female, lying in bed in no acute distress. HEENT: Head is normocephalic, atraumatic. Mucous membranes moist. Neck: No JVD noted. No carotid bruits. No lymphadenopathy. Cardiovascular: S1, S2 heard. No murmurs, gallops, or rubs. Regular rate and rhythm. Respiratory: Decreased breath sounds globally. I do not hear many breath sounds in the right base. The patient is not using any accessory muscles or having work of breathing. Abdomen: Soft. Nontender to palpation. Bowel sounds present. No organomegaly. Extremities: No clubbing or cyanosis. Trace pedal edema in both lower extremities, mostly on the right. Neurological: The patient has left hemiparesis that is residual from an old stroke. The patient is alert and awake. LABORATORY DATA: White cell count 6.12, hemoglobin 9.3, hematocrit 30.7, platelets 290,000. Sodium 139, potassium 3.5. Normal renal function. Calcium 7.9. ASSESSMENT AND PLAN: 1. Vasovagal syncope. No more episodes of syncope until now. Will continue to monitor. 2. Acute kidney injury. That completely resolved. Creatinine is completely back to normal. 3. Diabetes mellitus type 2. Will continue with Accu-Chek before meals and also at bedtime, and sliding scale insulin as well. 4. Hypertension. The patient, during her hospitalization, has saul having systolic blood pressure in the range of 90s, so at this point, her hydralazine has been held. Will continue to monitor. 5. Constipation. Will continue with stool softeners. 6. Large right pleural effusion with elevated proBNP. There was a suspicion for congestive heart failure, so echocardiogram has been ordered, but not available yet. That resolved. I think at this point, we will stop intravenous fluids, and will provide 1 dose of Lasix 40 mg intravenously. Considering the size of this pleural effusion, I prefer to go ahead and do a thoracentesis with ultrasound guide. Will see if we are able to remove fluid or not from there. At least on the CT scan of the chest, it looks like a fairly large-sized pleural effusion. In any case, will continue to monitor. 7. Disposition. Will continue to monitor this patient closely. Will need to fix the problem of right pleural effusion. The patient has a baseline left hemiparesis from an old stroke. I think we will call Spanner Operator to explore discharge needs. cc: Moshe Grande MD
[2019-12-07] MEDS: LOVENOX SUBQ SCH (08:06)
[2019-12-07] MEDS: ASPIRIN EC PO SCH (08:07)
[2019-12-07] MEDS: BUSPAR PO SCH ×2 (08:11→20:40)
[2019-12-07] MEDS: COLACE PO SCH ×2 (08:12→20:41)
[2019-12-07] MEDS: DEPAKOTE PO SCH (08:12)
[2019-12-07] MEDS: ATIVAN PO SCH ×2 (08:12→20:41)
[2019-12-07] MEDS: CELEXA PO SCH (08:12)
[2019-12-07] MEDS: SENOKOT PO SCH (08:12)
[2019-12-07] MEDS: SYNTHROID PO SCH (08:13)
[2019-12-07] MEDS: MIRALAX PO SCH ×2 (08:13→20:40)
[2019-12-07 10:35] LABS: INR 1.21; PROTIME 15.5 Seconds (11.0-16.0)
--- NOTE | 2019-12-07 18:17 | ECHO REPORT ---
ORDER DATE: 12/06/2019 INDICATION: Pleural effusion, question of congestive heart failure. M-MODE MEASUREMENTS: Left ventricle end diastole: 5.1. Left ventricle end systole: 2.8. Posterior wall: 0.9. Interventricular septum: 0.9. Left atrium: 3.7. Aortic diameter: 3.3. SUMMARY OF 2-DIMENSIONAL IMAGIN. Left ventricular function is hyperdynamic. Ejection fraction is 70%. There is no wall motion abnormality noted. 2. The right ventricle appears to be normal. 3. A right-sided pleural effusion appears to be present. 4. The inferior vena cava is not dilated. 5. The tricuspid valve shows a mild degree of regurgitation. 6. Pulmonary pressure is estimated at 28 mmHg. 7. The pulmonic valve appears to be grossly normal. 8. The aortic valve also appears to be grossly normal. Maximum gradient across the valve is 8 mm. Mean gradient is 4 mm. There is no stenosis, no regurgitation. 9. The mitral valve appears to be grossly normal. Color flow mapping shows no significant regurgitation. 10.Pulse wave Doppler of mitral inflow is normal. 11.Tissue Doppler of septal and lateral mitral annulus averages 5 cm. There is impaired left ventricular relaxation. 12.There is no pericardial effusion, no mass, and no thrombus. 13.The atria do not appear to be dilated. Clinical correlation recommended. cc: Fred Nicholson MD
[2019-12-07] MEDS: TYLENOL PO PRN (20:40)
[2019-12-08 07:02] LABS: BASO# 0.01 X1000 (0.0-0.2); BASO% 0.2 % (0.0-0.8); EOS# 0.64 X1000 (0.0-0.7); EOS% 9.7 % (0.0-10.0); HEMATOCRIT 30.9 % (37.0-47.0); HEMOGLOBIN 9.3 g/dL (12.0-16.0); LYMPH# 2.88 X1000 (1.2-3.4); LYMPH% 43.8 % (20.5-51.1); MCHC 30.1 g/dL (33-37); MONO# 0.54 X1000 (0.11-0.59); MONO% 8.2 % (1.7-9.3); MPV 10.8 FL (7.4-10.4); NEUT# 2.51 X1000 (1.4-6.5); NEUT% 38.1 % (42.2-75.2); PLT 245 X1000 (130-400); RDW 15.8 % (11.5-14.5); WBC 6.58 X1000 (4.8-10.8)
[2019-12-08 07:05] LABS: AGAP 11; BUN 9 mg/dL (8-22); CALCIUM 8.3 mg/dL (8.8-10.2); CHLORIDE 112 mmol/L (98-107); COSMO 282; CREATININE 0.8 mg/dL (0.5-0.9); ESTIMATED GFR > 60; GLUCOSE 69 mg/dL (70-104); MAGNESIUM 1.4 mg/dL (1.5-2.7); POTASSIUM 3.8 mmol/L (3.5-5.1); SODIUM 143 mmol/L (136-145); TCO2 20 mmol/L (25-35)
[2019-12-08] MEDS: TYLENOL PO PRN ×3 (07:07→22:35)
[2019-12-08] MEDS ORDERED: MAGNESIUM SULFATE 4 GM/S.W.I. 4 GM/100 ML IVPB IV ONE (07:08)
[2019-12-08] MEDS: DEPAKOTE PO SCH (08:09)
[2019-12-08] MEDS: CELEXA PO SCH (08:09)
[2019-12-08] MEDS: ATIVAN PO SCH ×2 (08:09→20:27)
[2019-12-08] MEDS: FLORINEF PO SCH ×2 (08:09→20:27)
[2019-12-08] MEDS: SENOKOT PO SCH (08:10)
[2019-12-08] MEDS: BUSPAR PO SCH ×2 (08:10→20:27)
[2019-12-08] MEDS: COLACE PO SCH ×2 (08:10→20:27)
[2019-12-08] MEDS: SYNTHROID PO SCH (08:10)
[2019-12-08] MEDS: MIRALAX PO SCH ×2 (08:15→20:27)
[2019-12-08] MEDS ORDERED: FLORINEF PO SCH (09:00)
--- NOTE | 2019-12-08 09:16 | PROGRESS NOTE ---
DATE: 12/08/2019 SUBJECTIVE: Patient reports feeling fine. She mentioned to me that she refused to have a thoracentesis yesterday because she was concerned about her low blood pressure. She is feeling better today. She is not requiring any oxygen supplementation. OBJECTIVE: Vital Signs: Temperature 97.7 degrees, heart rate 76, respiratory rate 16, blood pressure 116/79, O2 saturation 96% on room air. General examination: This is a chronically ill- appearing, 59-year-old female, lying in bed in no acute distress. Cardiovascular exam: S1, S2 heard. No murmurs, gallops, or rubs. Regular rate and rhythm. Respiratory: Decreased breath sounds globally. Absent breath sounds in the right pulmonary base. Patient is not using any accessory muscles or having work of breathing. Abdomen: Soft, nontender to palpation. Bowel sounds present. No organomegaly. Extremities: No clubbing or cyanosis, but there is mild trace pedal edema in both lower extremities, mostly in the right. Neurologic Exam: The patient has left hemiparesis that is residual from an old stroke, but the patient is alert and awake. LABORATORY DATA: White cell count 6.58, hemoglobin 9.3, hematocrit 30.9, platelets 245 with normal BMP, except magnesium 1.4. ASSESSMENT AND PLAN: 1. Vasovagal syncope. That condition is completely resolved. 2. Acute kidney injury, resolved. 3. Diabetes mellitus type 2. We will continue with Accu-Chek before meals and also at bedtime, and sliding scale insulin as well. 4. Hypertension. Actually this patient is relatively hypotensive with blood pressure in the range of 90s. Will continue to monitor. 5. Constipation. We will continue with stool softeners. 6. Large right pleural effusion with elevated proBNP. We have checked an echocardiogram; apparently that did not show any systolic or diastolic heart failure. I think this large pleural effusion is most definitely more related to a lung problem, so we tried to do thoracentesis yesterday, but patient refused. I talked with the patient in depth, and she said that she is going to let us do it today, so we have put the order in for thoracentesis with ultrasound guide for today. We will see what it shows. 7. Hypotension I think. I do not know at this point why this patient remains relatively hypotensive, so I prefer to go ahead and provide fludrocortisone twice daily. We will monitor this patient closely. 8. Disposition: We will see if we are going to try thoracentesis today. Pulmonary has been consulted. We will follow recommendations. cc: Moshe Grande MD
[2019-12-08] MEDS: LOVENOX SUBQ SCH (11:10)
[2019-12-08] MEDS: ASPIRIN EC PO SCH (11:10)
--- NOTE | 2019-12-08 14:00 | Diag Imaging Result Doc PS360 ---
EXAM: CHEST-2 VIEWS 12/08/2019 HISTORY: POST THORACENTESIS TECHNIQUE: Inspiratory expiratory chest COMMENT: There is no evidence of pneumothorax. There is a small amount of residual pleural fluid on the right. IMPRESSION: No evidence of pneumothorax. Electronically signed by Cristian Rajan 12/08/2019 1:58 PM
--- NOTE | 2019-12-08 14:15 | Diag Imaging Result Doc PS360 ---
EXAM: US THORACENTESIS W/IMAGE GUIDE 12/08/2019 HISTORY: large right pleural effusion TECHNIQUE: Ultrasound-guided right thoracentesis COMMENT: The risks and benefits of the procedure including the possibility of bleeding, infection, reaction to lidocaine, or pneumothorax were discussed with the patient and she agreed to the procedure. Following sterile preparation the skin posteriorly and administration 1% lidocaine to the skin and deeper soft tissues, a thoracentesis catheter was placed posteriorly in the lower right hemithorax and subsequently 800 L of light yellow clear fluid was drained. This was sent to the laboratory in its entirety. IMPRESSION: Successful ultrasound-guided thoracentesis. Electronically signed by rCistian Rajan 12/08/2019 2:13 PM
[2019-12-08 17:04] LABS: AMYLASE BODY FLUID 53 U/L; GLUCOSE BODY FLUID 91 mg/dL; LDH BODY FLUID 110 U/L; TOTAL PROT BODY FLUID 2.9 g/dL
[2019-12-08 18:30] LABS: BODY FLUID SOURCE PLEURAL FLUID; SPECIMEN PLEURAL FLUID; WBC BF 394 /cumm
[2019-12-08 18:40] LABS: POLYS 13 %
[2019-12-08 18:41] LABS: MONOS 87 %
--- NOTE | 2019-12-08 21:31 | PULMONOLOGY CONSULTATION ---
DATE: 12/08/2019 REQUESTING PROVIDER: Moshe Grande MD. REASON FOR CONSULTATION: Right pleural effusion. HISTORY OF PRESENT ILLNESS: This is a 59-year-old female with a medical history of cerebrovascular accident with left side deficit, diabetes mellitus type 2, hypertension, hyperlipidemia, and hypothyroidism. She has been she was transferred from [facility] on 12/04/2019 to our facility with a syncopal spell. Initial workup revealed acute kidney injury on chronic kidney disease on chronic renal insufficiency, elevated troponin T high sensitivity and proBNP. Initial chest x-ray showed progressive fibrosis or fibrosis with small infiltrate in the lower right lung. CT thorax without contrast showing a large right pleural effusion and a small left pleural effusion with compressive atelectasis in both lower lobes, particularly the right lower lobe and possible underlying pneumonia in the right lower lobe. Echocardiogram on 12/06/2019 showed impaired left ventricular relaxation with normal left ventricular ejection fraction. The patient received 1 dosage of Lasix 40 mg once and later she developed shock, so diuretics has been held since then. Dr. Bynum planned for thoracentesis with ultrasound-guided yesterday but patient refused. The patient currently is lying in bed on room air with no acute distress noted. She denies any shortness of breath or significant cough. She does have chronic left lower extremity edema after the stroke. She has no fever, no chills, chest pain, palpitation, or urination discomfort. She did complain of some nausea at this time and asking for medicine. She also had constipation before admission, which apparently is resolved now. RN at the bedside told me that the staff already talked with patient's family about the thoracentesis since the patient refused it. The patient's daughter is going to talk with the patient about it and to see if the patient will change her mind. PAST MEDICAL HISTORY: 1. Cerebral cerebrovascular accident with left side deficit in February 2019. 2. Diabetes mellitus type 2. 3. Hypertension. 4. Hyperlipidemia. 5. Hypothyroidism. 6. Chronic kidney disease. PREVIOUS SURGICAL HISTORY: Hysterectomy. FAMILY HISTORY: Positive for coronary artery disease. SOCIAL HISTORY: The patient is a former smoker and she quit smoking after the stroke in February 2019. She has no history of alcohol or illicit drug use. ALLERGIES: No known drug allergies. REVIEW OF SYSTEMS: 10 point review of systems was conducted and the pertinent is listed within the HPI, otherwise noncontributory. PHYSICAL EXAMINATION: Vital Signs: Temperature 97.7, blood pressure 109/63, pulse 69, respiratory rate 16, oxygen saturation 96% on the room air. General: Lying in bed with no acute distress noted. Complaining of nausea at this time. HEENT: Atraumatic, normocephalic. Trachea midline. Mucosa pink and moist. Pupils: Equal, round, reactive to light. Respiratory: Even and unlabored. Symmetrical excursion. Auscultation revealed diminished breathing sounds throughout all lung arnold with some crackles bilaterally. Cardiovascular: S1, S2 appreciated. Gastrointestinal: Obese, soft, nontender. Normoactive bowel sounds in all 4 quadrants. Extremities: Right lower extremity pitting edema 1+. No cyanosis. No clubbing. Neurologic: Alert oriented x3. Speech fluent. Follows commands. Left hemiparesis noted. LAB DATA: White blood cells 6.58, hemoglobin 9.3, hematocrit 30.9, platelets 245,000. Sodium 143, potassium 3.8, chloride 112, carbon dioxide 20, BUN 9, creatinine 0.8 glucose 69. IMAGING DATA: See HPI for CT thorax without contrast on 12/05/2019. ASSESSMENT: This is a 59-year-old female with a medical history of cerebrovascular accident with left-sided deficit, diabetes mellitus type 2, hypertension, hyperlipidemia, hypothyroidism and chronic kidney disease. She has been transferred from [facility] to our facility on 12/04/2019 with a syncopal episode. 1. Large right pleural effusion with small left pleural effusion and compressive atelectasis. 2. Shock. 3. Diastolic congestive heart failure with elevated proBNP and pleural effusion. Echocardiogram on 12/06/2019 showed impaired left ventricular relaxation. PLAN: 1. I talked with the patient about the large right pleural effusion and the potential clinical interventions. As the as patient developed shock, we cannot given any diuretic, so the better option right now will be the thoracentesis for both therapeutic and diagnostic purpose. The patient showed understanding and voiced that she is ready to get it done at this time. I talked with RN about patient's decision and RN reported he will contact with radiologist. 2. Will start costumed character consult consultation. 3. We will follow chest x-ray and pleural fluid lab after thoracentesis. 4. Further recommendations pending hospital course. Thank you for the courtesy of this consult. Dictated by LUIS ARMANDO Azlu for Jus Miller MD cc: LUIS ARMANDO Azul MD [facility]
[2019-12-09 06:46] LABS: BASO# 0.01 X1000 (0.0-0.2); BASO% 0.1 % (0.0-0.8); EOS# 0.65 X1000 (0.0-0.7); HEMATOCRIT 30.4 % (37.0-47.0); HEMOGLOBIN 9.5 g/dL (12.0-16.0); IMM GRAN# 0.02 X1000 (0.0-0.04); IMM GRAN% 0.2 % (0.0-0.5); LYMPH# 2.63 X1000 (1.2-3.4); LYMPH% 32.5 % (20.5-51.1); MCH 29.9 PG (27-31); MCHC 31.3 g/dL (33-37); MCV 95.6 FL (81-99); MONO# 0.59 X1000 (0.11-0.59); MONO% 7.3 % (1.7-9.3); MPV 10.3 FL (7.4-10.4); NEUT% 51.9 % (42.2-75.2); PLT 361 X1000 (130-400); RBC 3.18 XMIL (4.2-5.4); RDW 15.4 % (11.5-14.5)
[2019-12-09 07:20] LABS: TOTAL PROTEIN 4.5 g/dL (6.3-8.3)
[2019-12-09 07:21] LABS: AGAP 12; ALBUMIN 2.1 g/dL (3.5-5.0); BUN 9 mg/dL (8-22); CALCIUM 8.2 mg/dL (8.8-10.2); CHLORIDE 108 mmol/L (98-107); COSMO 281; CREATININE 0.6 mg/dL (0.5-0.9); ESTIMATED GFR > 60; GLUCOSE 80 mg/dL (70-104); MAGNESIUM 1.8 mg/dL (1.5-2.7); PHOSPHORUS 2.9 mg/dL (2.7-4.5); POTASSIUM 3.6 mmol/L (3.5-5.1); SODIUM 142 mmol/L (136-145); TCO2 22 mmol/L (25-35)
[2019-12-09] MEDS: BUSPAR PO SCH ×2 (09:11→20:42)
[2019-12-09] MEDS: COLACE PO SCH ×2 (09:11→20:31)
[2019-12-09] MEDS: ASPIRIN EC PO SCH (09:11)
[2019-12-09] MEDS: MIRALAX PO SCH ×2 (09:11→20:31)
[2019-12-09] MEDS: SYNTHROID PO SCH (09:11)
[2019-12-09] MEDS: CELEXA PO SCH (09:11)
[2019-12-09] MEDS: DEPAKOTE PO SCH (09:11)
[2019-12-09] MEDS: SENOKOT PO SCH (09:12)
[2019-12-09] MEDS: TYLENOL PO PRN ×3 (09:12→20:42)
[2019-12-09] MEDS: FLORINEF PO SCH (09:12)
[2019-12-09] MEDS: LOVENOX SUBQ SCH (09:23)
[2019-12-09] MEDS: ATIVAN PO SCH ×2 (09:23→20:42)
--- NOTE | 2019-12-09 10:18 | PROGRESS NOTE ---
DATE: 12/09/2019 SUBJECTIVE: Patient reports feeling fine. Breathing much better today. Denies any fever or chills. OBJECTIVE: Vital Signs: Temperature 98.2 degrees, heart rate 84, respiratory rate 17, blood pressure 114/65, O2 saturation 97% on room air. General: This is a chronically ill-appearing, 59-year-old female, lying in bed, in no acute distress. Cardiovascular: S1 and S2 heard. No murmurs, gallops or rubs. Regular rate and rhythm. Respiratory: Decreased breath sounds globally. The patient is not using any accessory muscles or having work of breathing. Abdomen: Soft, nontender to palpation. Bowel sounds present. No organomegaly. Extremities: No clubbing, cyanosis or edema. Peripheral pulses present in both legs. Neurological: The patient has left hemiparesis that is residual from an old stroke but the patient is alert and awake. Mood is depressed. LABORATORY DATA: White cell count 8.1, hemoglobin 9.5, hematocrit 30.4, platelets 361,000 with normal BMP. ASSESSMENT AND PLAN: 1. Vasovagal syncope, resolved. 2. Acute kidney injury, resolved. 3. Diabetes mellitus type 2. We will continue with Accu-Chek before meals and also at bedtime and sliding scale insulin as well. The patient is not eating okay so blood sugar has been in the range of 90s and 100s in the morning. 4. Constipation. We will continue with stool softeners. 5. Large right pleural effusion with elevated proBNP status post thoracentesis. Yesterday we were able to remove 800 mL of pleural effusion that has been sent for analysis. Patient reports breathing much better. We will continue to monitor. 6. Hypotension. Patient has been placed on fludrocortisone. Blood pressure is above 100 all the time. We will keep this patient on this medication for today and will stop it tomorrow and see how this patient does. We started this medication because before coming to the hospital, she was hypertensive requiring hydralazine, that of course, has been stopped while she is here. 7. Disposition. The patient expressed her desire to go to rehab facility because she feels very weak. We will consult social service technician. Physical therapy and Occupational Therapy has been consulted. We will continue to monitor. cc: MD [facility] [place]
--- NOTE | 2019-12-09 18:04 | PROVIDER PROGRESS NOTE ---
Progress Note Dr. Miller Progress Note/Pulmonary and or critical care Subjective: The patient is lying in bed complaining of right buttock pain. She is asking for repositioning. She also complains of some pain around the neck area which makes her SOB at times. She denies sore throat. She denies any pain or discomfort from the thoracentesis site. Objective: Vital Signs: T 97.9 (no fever in last 24 hours), MT 62, RR 17, BP 116/70 and SaO2 94% on room air. Physical Examination: General: chronically ill appearing. Lying in bed with no acute distress noted. HEENT: Normocephalic. Trachea midline. Mucosa pink and slightly dry. PERRL. Chest: Even and unlabored. Symmetrical excursion. Shallow breathing. Diminished breathing sounds with inspiratory crackles bilaterally. CVS: S1 and S2 appreciated. Abdomen: Soft. Non-distended. Non-tender. Normoactive bowel sounds in all 4 quadrants. Extremities: LLE pitting edema 1+. No cyanosis. No clubbing. Neuro: A/O x3. Conversant. Speech fluent. Follow commands. Left hemiparesis noted. Labs and Radiology: Laboratory Results 12/08/19 12/08/19 12/08/19 13:45 13:45 19:29 WBC RBC Hgb Hct MCV MCH MCHC RDW Std Deviation Plt Count MPV Immature Gran % (Auto) Neut % (Auto) Lymph % (Auto) [place] % (Auto) Eos % (Auto) Baso % (Auto) Immature Gran # (Auto) Neut # (Auto) Lymph # (Auto) [place] # (Auto) Eos # (Auto) Baso # (Auto) Sodium Potassium Chloride Carbon Dioxide Anion Gap BUN Creatinine Estimated GFR/1.73 m2 BUN/Creatinine Ratio Glucose POC Glucose 118 H Calculated Osmolality Calcium Phosphorus Magnesium Lactate Dehydrogenase Total Protein Albumin Specimen Type PLEURAL FLUID Fluid Source * PLEURAL FLUID Fluid pH 7.0 Fluid WBC 394 Fluid Polynuclear WBCs 13 Fluid Mononuclear WBCs 87 Fluid Glucose 91 Fluid Total Protein 2.9 Fluid LDH 110 Fluid Amylase 53 12/09/19 12/09/19 12/09/19 06:07 06:07 06:08 WBC 8.10 RBC 3.18 L Hgb 9.5 L Hct 30.4 L MCV 95.6 MCH 29.9 MCHC 31.3 L RDW Std Deviation 15.4 H Plt Count 361 D MPV 10.3 Immature Gran % (Auto) 0.2 Neut % (Auto) 51.9 Lymph % (Auto) 32.5 [place] % (Auto) 7.3 Eos % (Auto) 8.0 Baso % (Auto) 0.1 Immature Gran # (Auto) 0.02 Neut # (Auto) 4.20 Lymph # (Auto) 2.63 [place] # (Auto) 0.59 Eos # (Auto) 0.65 Baso # (Auto) 0.01 Sodium 142 Potassium 3.6 Chloride 108 H Carbon Dioxide 22 L Anion Gap 12 BUN 9 Creatinine 0.6 Estimated GFR/1.73 m2 > 60 BUN/Creatinine Ratio 15 Glucose 80 POC Glucose Calculated Osmolality 281 Calcium 8.2 L Phosphorus 2.9 Magnesium 1.8 Lactate Dehydrogenase 152 Total Protein 4.5 L Albumin 2.1 L Specimen Type Fluid Source Fluid pH Fluid WBC Fluid Polynuclear WBCs Fluid Mononuclear WBCs Fluid Glucose Fluid Total Protein Fluid LDH Fluid Amylase 12/09/19 12/09/19 12/09/19 06:20 10:32 15:22 WBC RBC Hgb Hct MCV MCH MCHC RDW Std Deviation Plt Count MPV Immature Gran % (Auto) Neut % (Auto) Lymph % (Auto) [place] % (Auto) Eos % (Auto) Baso % (Auto) Immature Gran # (Auto) Neut # (Auto) Lymph # (Auto) [place] # (Auto) Eos # (Auto) Baso # (Auto) Sodium Potassium Chloride Carbon Dioxide Anion Gap BUN Creatinine Estimated GFR/1.73 m2 BUN/Creatinine Ratio Glucose POC Glucose 88 92 163 H D Calculated Osmolality Calcium Phosphorus Magnesium Lactate Dehydrogenase Total Protein Albumin Specimen Type Fluid Source Fluid pH Fluid WBC Fluid Polynuclear WBCs Fluid Mononuclear WBCs Fluid Glucose Fluid Total Protein Fluid LDH Fluid Amylase Assessment: Large right pleural effusion with small left pleural effusion and compressive atelectasis. s/p thoracentesis 12/08/19 with 800 mL of fluid aspirated. Pleural fluid analysis is more consistent with exudative. Pleural fluid gram stain is negative for bacteria. Pleural fluid routine culture has no growth. Shock. Improving. Diastolic congestive heart failure with elevated proBNP and pleural effusions. Echocardiogram on 12/07/19 showed impaired left ventricular relaxation. Constipation. Plan: Continue bowel regimen per Dr. Bynum. Start incentive spirometer. Encourage deep breathing. Physical therapy initiated. Evaluation time in minutes: 31 minutes
[2019-12-10] MEDS: TYLENOL PO PRN ×3 (05:17→17:31)
[2019-12-10 07:49] LABS: BASO# 0.01 X1000 (0.0-0.2); BASO% 0.1 % (0.0-0.8); EOS# 0.57 X1000 (0.0-0.7); EOS% 8.1 % (0.0-10.0); HEMATOCRIT 31.2 % (37.0-47.0); HEMOGLOBIN 9.5 g/dL (12.0-16.0); IMM GRAN# 0.03 X1000 (0.0-0.04); IMM GRAN% 0.4 % (0.0-0.5); LYMPH# 2.16 X1000 (1.2-3.4); LYMPH% 30.8 % (20.5-51.1); MCH 29.5 PG (27-31); MCHC 30.4 g/dL (33-37); MCV 96.9 FL (81-99); MONO# 0.64 X1000 (0.11-0.59); MONO% 9.1 % (1.7-9.3); MPV 10.2 FL (7.4-10.4); NEUT# 3.61 X1000 (1.4-6.5); NEUT% 51.5 % (42.2-75.2); PLT 375 X1000 (130-400); RBC 3.22 XMIL (4.2-5.4); RDW 15.5 % (11.5-14.5); WBC 7.02 X1000 (4.8-10.8)
[2019-12-10 08:16] LABS: AGAP 11; ALBUMIN 2.1 g/dL (3.5-5.0); BUN 10 mg/dL (8-22); CALCIUM 8.5 mg/dL (8.8-10.2); CHLORIDE 107 mmol/L (98-107); COSMO 280; CREATININE 0.8 mg/dL (0.5-0.9); ESTIMATED GFR > 60; GLUCOSE 88 mg/dL (70-104); MAGNESIUM 1.8 mg/dL (1.5-2.7); PHOSPHORUS 3.8 mg/dL (2.7-4.5); POTASSIUM 3.6 mmol/L (3.5-5.1); SODIUM 141 mmol/L (136-145); TCO2 23 mmol/L (25-35)
[2019-12-10] MEDS: SYNTHROID PO SCH (08:58)
[2019-12-10] MEDS: ASPIRIN EC PO SCH (08:59)
[2019-12-10] MEDS: FLORINEF PO SCH (08:59)
[2019-12-10] MEDS: ATIVAN PO SCH ×2 (09:00→19:59)
[2019-12-10] MEDS: BUSPAR PO SCH ×2 (09:00→19:59)
[2019-12-10] MEDS: CELEXA PO SCH (09:00)
[2019-12-10] MEDS: DEPAKOTE PO SCH (09:00)
[2019-12-10] MEDS: LOVENOX SUBQ SCH (09:01)
[2019-12-10] MEDS: MIRALAX PO SCH ×2 (09:02→19:59)
[2019-12-10] MEDS: SENOKOT PO SCH (09:02)
[2019-12-10] MEDS: COLACE PO SCH ×2 (09:02→19:59)
--- NOTE | 2019-12-10 10:46 | PROGRESS NOTE ---
DATE: 12/10/2019 SUBJECTIVE: The patient reports feeling fine. No complaints at this time. OBJECTIVE: Vital Signs: Temperature 97.7 degrees, heart rate 80, respiratory rate 16, blood pressure 113/63, O2 saturation 96% on room air. General: This is a chronically ill-appearing, 59- year-old, female lying in bed in no acute distress. Cardiovascular: S1, S2 heard. No murmurs, gallops, or rubs. Regular rate and rhythm. Respiratory: Decreased breath sounds globally. The patient is not using any accessory muscles or having work of breathing. Abdomen: Soft, nontender to palpation. Bowel sounds present. No organomegaly. Extremities: No clubbing, cyanosis, or edema. Neurological: The patient has residual left hemiparesis from an old stroke. The patient is alert and awake, more depressed. LABORATORY DATA: Reviewed. ASSESSMENT AND PLAN: 1. Vasovagal syncope, resolved. 2. Acute kidney injury, resolved. 3. Diabetes mellitus type 2. Will continue with Accu-Chek before meals and also at bedtime. The patient is eating better today. 4. Constipation. Will continue with stool softeners. 5. Large right pleural effusion, improved. We have removed 800 mL of pleural effusion 2 days ago. Will check an x-ray today to see how this patient is doing. 6. Hypotension. The patient has been placed on fludrocortisone, and we are going to stop. His blood pressure is 120 to 140 systolic blood pressure. Will continue to monitor. 7. Disposition. At this point, the patient is medically stable. We are waiting for a rehab bed for her. cc: Moshe Grande MD
--- NOTE | 2019-12-10 13:03 | Diag Imaging Result Doc PS360 ---
EXAM: CHEST-1 VIEW 12/10/2019 HISTORY: right pleural effusion TECHNIQUE: AP portable semiupright at 1234 COMMENT: There is slightly increased pleural fluid on the right compared to the previous study of 12/08/2019. Otherwise are has been no significant change. IMPRESSION: Slight reaccumulation of pleural fluid on the right. Electronically signed by Cristian Rajan 12/10/2019 1:00 PM
--- NOTE | 2019-12-10 19:34 | PROVIDER PROGRESS NOTE ---
Progress Note Dr. Miller Progress Note/Pulmonary and or critical care Subjective: The patient is sleeping in bed. She answers my question, but keeps eyes closed. She apparently took 0.5 mg Ativan orally about 1 hour ago. She denies any pain at this time. Objective: Vital Signs: T 97.1 (no fever in last 24 hours), HI 80, RR 16, BP 113/63 and SaO2 96% on room air. Physical Examination: General: chronically ill appearing. Lying in bed with no acute distress noted. HEENT: Normocephalic. Trachea midline. Mucosa pink and slightly dry. PERRL. Chest: Even and unlabored. Symmetrical excursion. Shallow breathing. Diminished breathing sounds with inspiratory crackles bilaterally. CVS: S1 and S2 appreciated. Abdomen: Soft. Non-distended. Non-tender. Normoactive bowel sounds in all 4 quadrants. Extremities: LLE pitting edema 1+. No cyanosis. No clubbing. Neuro: A/O x3. Conversant. Speech fluent. Follow commands. Left hemiparesis noted. Labs and Radiology: Laboratory Results 12/09/19 12/10/19 12/10/19 20:08 04:18 07:12 WBC RBC Hgb Hct MCV MCH MCHC RDW Std Deviation Plt Count MPV Immature Gran % (Auto) Neut % (Auto) Lymph % (Auto) [place] % (Auto) Eos % (Auto) Baso % (Auto) Immature Gran # (Auto) Neut # (Auto) Lymph # (Auto) [place] # (Auto) Eos # (Auto) Baso # (Auto) Sodium 141 Potassium 3.6 Chloride 107 Carbon Dioxide 23 L Anion Gap 11 BUN 10 Creatinine 0.8 Estimated GFR/1.73 m2 > 60 BUN/Creatinine Ratio 13 Glucose 88 POC Glucose 111 H 72 Calculated Osmolality 280 Calcium 8.5 L Phosphorus 3.8 Magnesium 1.8 Albumin 2.1 L 12/10/19 12/10/19 12/10/19 07:12 10:41 16:04 WBC 7.02 RBC 3.22 L Hgb 9.5 L Hct 31.2 L MCV 96.9 MCH 29.5 MCHC 30.4 L RDW Std Deviation 15.5 H Plt Count 375 MPV 10.2 Immature Gran % (Auto) 0.4 Neut % (Auto) 51.5 Lymph % (Auto) 30.8 [place] % (Auto) 9.1 Eos % (Auto) 8.1 Baso % (Auto) 0.1 Immature Gran # (Auto) 0.03 Neut # (Auto) 3.61 Lymph # (Auto) 2.16 [place] # (Auto) 0.64 H Eos # (Auto) 0.57 Baso # (Auto) 0.01 Sodium Potassium Chloride Carbon Dioxide Anion Gap BUN Creatinine Estimated GFR/1.73 m2 BUN/Creatinine Ratio Glucose POC Glucose 104 75 Calculated Osmolality Calcium Phosphorus Magnesium Albumin 12/10/19 19:16 WBC RBC Hgb Hct MCV MCH MCHC RDW Std Deviation Plt Count MPV Immature Gran % (Auto) Neut % (Auto) Lymph % (Auto) [place] % (Auto) Eos % (Auto) Baso % (Auto) Immature Gran # (Auto) Neut # (Auto) Lymph # (Auto) [place] # (Auto) Eos # (Auto) Baso # (Auto) Sodium Potassium Chloride Carbon Dioxide Anion Gap BUN Creatinine Estimated GFR/1.73 m2 BUN/Creatinine Ratio Glucose POC Glucose 135 H D Calculated Osmolality Calcium Phosphorus Magnesium Albumin Assessment: Large right pleural effusion with small left pleural effusion and compressive atelectasis. s/p thoracentesis 12/08/19 with 800 mL of fluid aspirated. Pleural fluid analysis is more consistent with exudative. Pleural fluid gram stain is negative for bacteria. Pleural fluid routine culture has no growth. CXR today shows slight re-accumulation of pleural fluid on the right. Shock. Resolved. Elevated proBNP and pleural effusions. Echocardiogram on 12/07/19 showed impaired left ventricular relaxation. Constipation. Plan: Continue bowel regimen per Dr. Bynum. Start incentive spirometer. Encourage deep breathing. Physical therapy. Rehab placement planning per Dr. Bynum.
[2019-12-11] MEDS: TYLENOL PO PRN ×2 (05:41→12:08)
[2019-12-11 07:01] LABS: BASO# 0.01 X1000 (0.0-0.2); BASO% 0.1 % (0.0-0.8); EOS# 0.47 X1000 (0.0-0.7); EOS% 6.8 % (0.0-10.0); HEMATOCRIT 31.3 % (37.0-47.0); HEMOGLOBIN 9.8 g/dL (12.0-16.0); IMM GRAN# 0.02 X1000 (0.0-0.04); IMM GRAN% 0.3 % (0.0-0.5); LYMPH# 2.47 X1000 (1.2-3.4); LYMPH% 35.7 % (20.5-51.1); MCH 30.4 PG (27-31); MCHC 31.3 g/dL (33-37); MCV 97.2 FL (81-99); MONO# 0.45 X1000 (0.11-0.59); MONO% 6.5 % (1.7-9.3); NEUT% 50.6 % (42.2-75.2); PLT 367 X1000 (130-400); RBC 3.22 XMIL (4.2-5.4); RDW 15.6 % (11.5-14.5); WBC 6.92 X1000 (4.8-10.8)
[2019-12-11 07:18] LABS: AGAP 8; ALBUMIN 2.3 g/dL (3.5-5.0); BUN 10 mg/dL (8-22); CALCIUM 8.4 mg/dL (8.8-10.2); CHLORIDE 109 mmol/L (98-107); COSMO 281; CREATININE 0.7 mg/dL (0.5-0.9); ESTIMATED GFR > 60; GLUCOSE 113 mg/dL (70-104); PHOSPHORUS 3.3 mg/dL (2.7-4.5); POTASSIUM 3.9 mmol/L (3.5-5.1); SODIUM 141 mmol/L (136-145); TCO2 24 mmol/L (25-35)
[2019-12-11] MEDS: ATIVAN PO SCH (08:39)
[2019-12-11] MEDS: SENOKOT PO SCH (08:42)
[2019-12-11] MEDS: ASPIRIN EC PO SCH (08:42)
[2019-12-11] MEDS: BUSPAR PO SCH (08:42)
[2019-12-11] MEDS: COLACE PO SCH (08:43)
[2019-12-11] MEDS: DEPAKOTE PO SCH (08:43)
[2019-12-11] MEDS: SYNTHROID PO SCH (08:43)
[2019-12-11] MEDS: CELEXA PO SCH (08:44)
[2019-12-11] MEDS: LOVENOX SUBQ SCH (08:45)
[2019-12-11] MEDS: MIRALAX PO SCH (08:49)
[2019-12-11 12:03] VITALS: BP 105/57
--- NOTE | 2019-12-11 17:11 | PROVIDER PROGRESS NOTE ---
Progress Note Dr. Miller Progress Note/Pulmonary and or critical care Subjective: The patient is awake and alert. She is complaining of LLE pain and asks for [place]. She asks me when she will be discharged. Objective: Vital Signs: T 98 (no fever in last 24 hours), NM 87, RR 14, BP 103/45 and SaO2 100% on room air. Physical Examination: General: chronically ill appearing. Lying in bed with no acute distress noted. HEENT: Normocephalic. Trachea midline. Mucosa pink and slightly dry. PERRL. Chest: Even and unlabored. Symmetrical excursion. Significantly shallow breathing. Diminished breathing sounds with inspiratory crackles bilaterally. CVS: S1 and S2 appreciated. Abdomen: Soft. Non-distended. Non-tender. Normoactive bowel sounds in all 4 quadrants. Extremities: LLE pitting edema 1+. No cyanosis. No clubbing. Neuro: A/O x3. Speech fluent. Follow commands. Left hemiparesis noted. Labs and Radiology: Laboratory Results 12/08/19 12/08/19 12/10/19 13:45 13:45 19:16 WBC RBC Hgb Hct MCV MCH MCHC RDW Std Deviation Plt Count MPV Immature Gran % (Auto) Neut % (Auto) Lymph % (Auto) [place] % (Auto) Eos % (Auto) Baso % (Auto) Immature Gran # (Auto) Neut # (Auto) Lymph # (Auto) [place] # (Auto) Eos # (Auto) Baso # (Auto) Sodium Potassium Chloride Carbon Dioxide Anion Gap BUN Creatinine Estimated GFR/1.73 m2 BUN/Creatinine Ratio Glucose POC Glucose 135 H D Calculated Osmolality Calcium Phosphorus Albumin Fungal Smear SEE COMMENTS Non-Gen Cytology Smear REFERRED FOR TESTING 12/11/19 12/11/19 12/11/19 05:43 06:14 06:50 WBC RBC Hgb Hct MCV MCH MCHC RDW Std Deviation Plt Count MPV Immature Gran % (Auto) Neut % (Auto) Lymph % (Auto) [place] % (Auto) Eos % (Auto) Baso % (Auto) Immature Gran # (Auto) Neut # (Auto) Lymph # (Auto) [place] # (Auto) Eos # (Auto) Baso # (Auto) Sodium 141 Potassium 3.9 Chloride 109 H Carbon Dioxide 24 L Anion Gap 8 BUN 10 Creatinine 0.7 Estimated GFR/1.73 m2 > 60 BUN/Creatinine Ratio 14 Glucose 113 H POC Glucose 59 L D 89 D Calculated Osmolality 281 Calcium 8.4 L Phosphorus 3.3 Albumin 2.3 L Fungal Smear Non-Gen Cytology Smear 12/11/19 12/11/19 06:50 10:11 WBC 6.92 RBC 3.22 L Hgb 9.8 L Hct 31.3 L MCV 97.2 MCH 30.4 MCHC 31.3 L RDW Std Deviation 15.6 H Plt Count 367 MPV 10.0 Immature Gran % (Auto) 0.3 Neut % (Auto) 50.6 Lymph % (Auto) 35.7 [place] % (Auto) 6.5 Eos % (Auto) 6.8 Baso % (Auto) 0.1 Immature Gran # (Auto) 0.02 Neut # (Auto) 3.50 Lymph # (Auto) 2.47 [place] # (Auto) 0.45 Eos # (Auto) 0.47 Baso # (Auto) 0.01 Sodium Potassium Chloride Carbon Dioxide Anion Gap BUN Creatinine Estimated GFR/1.73 m2 BUN/Creatinine Ratio Glucose POC Glucose 120 H Calculated Osmolality Calcium Phosphorus Albumin Fungal Smear Non-Gen Cytology Smear Assessment: Large right pleural effusion with small left pleural effusion and compressive atelectasis. s/p thoracentesis 12/08/19 with 800 mL of fluid aspirated. Pleural fluid analysis is more consistent with exudative. Pleural fluid gram stain is negative for bacteria. Pleural fluid routine culture has no growth. Shock. Resolved. Elevated proBNP and pleural effusions. Echocardiogram on 12/07/19 showed impaired left ventricular relaxation. Constipation. Plan: Continue bowel regimen per Dr. Bynum. Start incentive spirometer. Encourage deep breathing. Physical therapy. Rehab placement planning per Dr. Bynum.
--- NOTE | 2019-12-12 20:10 | Extremity Venous Study ---
PROCEDURE NAME: Venous U/S Left Leg - 12/06/2019 PROCEDURE: Left lower extremity venous duplex, and color flow imaging study using a GE Vivid E9 Ultrasound System with a 9L-D transducer. REFERRING PHYSICIAN: Juan José Sweeney MD PATIENT INFORMATION: 59-year-old female. MOLD CLOSER: YANN Sifuentes. INDICATIONS: Left lower extremity pain and edema suggestive of deep venous thrombosis. FINDINGS: Left common femoral vein and its branches, deep and superficial femoral veins were satisfactorily imaged. They had flow through them and were compressible. Left popliteal vein and the deep veins below the left knee were all compressible and had flow through them. The superficial veins of the left lower extremity were compressible throughout their length. INTERPRETATION: No evidence of acute deep or superficial venous thrombosis left lower extremity. cc: Kelly Beckett MD
--- NOTE | 2019-12-13 13:50 | DISCHARGE SUMMARY ---
ADMISSION DATE: 12/04/2019 DISCHARGE DATE: 12/11/2019 DISCHARGE DIAGNOSES: 1. Syncope most likely vasovagal, resolved. 2. Acute kidney injury. Completely resolved. 3. Diabetes mellitus type 2. 4. Constipation. 5. Hypothyroidism. 6. Fluid volume depletion. CONSULTATIONS: Dr. Jus Miller from Pulmonary. PROCEDURES: 1. Abdomen x-ray showed mild constipation. 2. Chest x-ray showed progressive fibrosis with a small infiltrate in the lower right lung. 3. CT of the chest showed pleural effusion and atelectasis. 4. Echocardiogram Doppler showed ejection fraction of 70% with no wall motion abnormality noted. 5. Extremity venous study showed no evidence of acute deep or superficial venous thrombosis in the left lower extremity. 6. Thoracentesis ultrasound removed 800 mL of light yellow clear fluid. 7. X-ray from 1 day before discharge showed slight reaccumulation of pleural fluid. HOSPITAL COURSE: In brief this is a 59-year-old female who came to the emergency department from [facility] after she had a syncopal episode. The patient has been having nausea or vomiting for a week. Apparently, she had a viral illness. The patient is not able to keep any food down. She actually passed out once. She has been on Bactrim. Over here, we found out that this patient also had some dehydration with acute kidney injury and we provided IV fluids. The patient was doing fine. Because of this persistent pleural effusion, we decided to do an ultrasound guided thoracentesis which helped remove fluids, in this case, 800 mL of fluid. Patient was doing okay. Patient is stable, so we are going to send this patient back home with home health. DISCHARGE PHYSICAL EXAMINATION: Vital Signs: Temperature 99 degrees, heart rate 87, respiratory rate 18, blood pressure 105/57, O2 saturation 96% on room air. General: This is a chronically 68- year-old female lying in bed, in no acute distress. Cardiovascular: S1 and S2 heard. No murmurs, rubs or gallops. Regular rate and rhythm. Respiratory: Minimal rhonchi noted in both pulmonary bases. Patient is not using any accessory muscles or having work of breathing. Abdomen: Soft, nontender to palpation. Bowel sounds present. No organomegaly. Extremities: No clubbing, cyanosis, or edema. Peripheral pulses present in both legs. Neurological: The patient alert oriented x3. Moves 4 extremities. DISCHARGE DISPOSITION: Home. Self care TIME SPENT ON DISCHARGE: Thirty-three minutes. DISCHARGE MEDICATIONS: 1. Docusate sodium 100 mg 1 tablet p.o. twice daily. 2. Hydralazine 25 mg 1 tab twice daily. 3. Lorazepam 1 tablet p.o. twice daily. 4. Metformin ER 2 tablets p.o. daily. 5. Citalopram 40 mg 1 tablet p.o. daily. 6. Aspirin 81 mg 1 tablet p.o. daily. 7. Buspirone 50 mg 1 tablet p.o. b.i.d. 8. Levothyroxine 112 mcg 1 tablet p.o. daily. 9. Depakote 125 mg 1 tablet p.o. daily. 10. Senokot 8.6 mg 1 tablet p.o. daily. 11. Robaxin 750 mg p.o. every 8 hours as needed for muscle pain. cc: Moshe Grande MD
== END 2019-12-11 14:56 | disposition home health service (06) | DRG 683 ==
LOC: DIRADM 23:27 → SUATTDRO 23:27 → 2N 12-05 02:00 → 3N 12-09 11:18
PROVIDERS: ATTEND Internal Medicine

== ENCOUNTER 2020-01-05 00:57 | Inpatient (IN) ==
[2020-01-05] MEDS ORDERED: ZOFRAN IV ONE ×2 (01:10→05:07)
--- NOTE | 2020-01-05 01:14 | PROVIDER DOCUMENTATION ---
HPI-Abdominal Pain/GI Problem - General Stated Complaint: n/v Time Seen by Provider: 01/05/20 01:09 Source: EMS Allergies/Adverse Reactions: Patient Allergies Allergy/AdvReac Type Severity Reaction Status Date / Time No Known Allergies Allergy Verified 10/08/19 18:34 Home Medications: Home Medication List Medication Instructions Recorded Confirmed Last Taken Type Citalopram Hydrobromide 40 mg PO DAILY 09/05/19 12/05/19 09/04/19 21:00 History [Citalopram HBr] 40 MG Docusate Sodium 100 mg PO BID 09/05/19 12/05/19 09/05/19 08:00 History 100 MG Hydralazine HCl 25 mg PO BID 09/05/19 12/05/19 09/05/19 08:00 History 25 MG Lorazepam 0.5 mg PO BID 09/05/19 12/05/19 09/05/19 08:00 History 0.5 MG Metformin E.r. [Glucophage Xr] 2 tab PO DAILY 09/05/19 12/05/19 09/05/19 08:00 History 1000 MG Aspirin EC 81 mg PO DAILY 10/09/19 12/05/19 Unknown History Buspirone [Buspar] 15 mg PO BID 10/09/19 12/05/19 Unknown History Levothyroxine Sodium [Synthroid] 112 mcg PO DAILY 10/09/19 12/05/19 Unknown History Divalproex [Depakote] 125 mg PO DAILY 12/05/19 12/05/19 Unknown History Methocarbamol [Robaxin-750] 750 mg PO Q8H PRN 12/05/19 12/05/19 Unknown History Sennosides [Senokot] 8.6 mg PO DAILY 12/05/19 12/05/19 Unknown History - History of Present Illness-ABD Nature of Presenting Problems: A 59 y/o female presents with c/o Nausea and vomiting since 3 days. Denies any CP or SOB or abd pain or urinary symptoms. Per EMS pt was gagging during the ride but never threw up. Per pt her friend had similar symptoms on Wednesday when she visited her. Pt is worried if she has any viral infection. Review of Systems - Adult - REVIEW OF SYSTEMS - ADULT Constitutional: denies: no symptoms reported Eyes: denies: no symptoms reported Ears, Nose, Mouth & Throat: denies: no symptoms reported Cardiovascular: denies: no symptoms reported Respiratory: denies: no symptoms reported Gastrointestinal: reports: see HPI, nausea, vomiting Genitourinary: denies: no symptoms reported Musculoskeletal: denies: no symptoms reported Integumentary: denies: no symptoms reported Neurological: denies: no symptoms reported Psychiatric: denies: no symptoms reported Endocrine: denies: no symptoms reported Hematologic/Lymphatic: denies: no symptoms reported Allergic/Immunologic: denies: no symptoms reported Past History - Adult - PAST MEDICAL HISTORY-ADULT Review of Records: reports: Nursing Assessment Review, Medications Reviewed, Social history reviewed & non-contributory. Respiratory: reports: denies history Gastrointestinal: reports: denies history Neurological: reports: CVA, stroke deficits (left sided) Psychiatric: reports: denies history - PRIOR SURGERIES/PROCEDURES Surgical/Procedure History: denies: recent surgery - FAMILY HISTORY Family History: reviewed, not pertinent Physical Exam-General - PHYSICAL EXAM-ADULT Initial Vital Signs Reviewed: Yes (VSS, slight tachy) - CONSTITUTIONAL General Appearance: appears well, alert, mild distress (crying out frequently) - EYES Eyes: PERRL/EOMI, pink conjunctivae. negative: scleral icterus - HEAD, EARS, NOSE, MOUTH & THROAT HENMT: normocephalic/atraumatic, moist mucous membranes, normal ENT inspection. negative: hearing deficit - NECK Neck: supple - RESPIRATORY Respiratory: lungs clear, normal breath sounds, no respiratory distress, no accessory muscle use - CARDIOVASCULAR Cardiovascular: regular rate, rhythm, no murmur, tachycardia - GASTROINTESTINAL (ABDOMEN) Abdominal Exam: normal bowel sounds, non tender, soft, no organomegaly, no pulsatile mass. negative: distended, guarding, tenderness, mass - LYMPHATIC Lymphatic: no adenopathy - MUSCULOSKELETAL Back Exam: no CVA tenderness, no vertebral tenderness. negative: decreased range of motion Extremity: no pedal edema, no calf tenderness, tenderness (left anterior tibia with some edema), other (right thumb has a 1cm lesion, tender to palpation, appears to be an ulcer with surrounding erythema and ecchymosis. no pus, but it is indurated). negative: normal range of motion (she has left hemiplegia from CVa) Peripheral Pulses: radial (R): 2+, radial (L): 2+, dorsalis-pedis (R): 2+, dorsalis-pedis (L): 2+ - SKIN Integumentary: warm/dry, pallor, other (R thumb cellulitis with abscess.) - NEUROLOGIC Neurologic: glass sander II-XII nml as tested, abnormal gait (UNAble), motor weakness (left hemiplegia from sixto CVA) - PSYCHIATRIC Psych/Mental Status: normal thought content, oriented x 3, anxious, depressed affect, paranoid Progress - PLAN OF CARE/RESULTS Progress/Plan/Lab Results: Orders Category Date Time Status CBC WITH ELECTRONIC DIFF [HEME] Stat Lab 01/05/20 01:09 Uncollected COMPREHENSIVE METABOLIC PANEL [CHEM] Stat Lab 01/05/20 01:10 Uncollected URINALYSIS W/POSS RFLX CULT [URINALYSIS] Stat Lab 01/05/20 01:10 Uncollected Ondansetron [Zofran] Med 01/05/20 01:10 Once 4 mg IV NOW ONE Result Diagrams: 01/05/20 01:31 01/05/20 01:31 - REASSESSMENT Reassessment #1 Time Reassessed: 04:45 Status: unchanged (pt feeling nauseated after PO challenge, will repeat zofran) Reassessment #2 Time Reassessed: 06:20 Status: other (when the RN called the family about discharge, they requested Psych eval. will place a request.) Reassessment #3 Time Reassessed: 07:14 Status: unchanged (Seen and examined by me. Case discussed with Dr. See. Patient awaiting Psych screen as family refuses to take patient home without one. Per hx, she had a mood change at home, is refusing her psych meds, has been crying frequently, and not "behaving" as she should since she had a recent CVA. Patient has some cellulitis to right thumb, which may account for leukocytosis. Will also check strep and flu. Patient also states her left lower leg, along the benson is hurting very much, that she fell a few weeks ago af ter her stroke and no one has x-rayed it. A review of imaging done here in the EMR shows a doppler of the left leg last month, which was negative for DVT, but no x-ray. I am not certain she is medically clear yet for psych consultations.) - PSYCHIATRIC Medically clear for psych eval and/or transfer to IP bed.: No (Patient has abnormal EKG, sl elevated trop, very elevate BNP, leuokocytosis) - EKG 1 Time of EKG reading by physician:: 07:59 EKG Read and Signed by:: Jacinto Carpenter EKG Interpretation (*Must complete 3 of following elements*): Abnormal Rate: 95 Rhythm: NSR [place]: normal QRS: other (earlt transition) [place] Interval: normal ST Wave: non-specific ST changes (T-wave inversions mult leads (I, II, V2-V6)) Prior EKG Comparison: changes noted (significant T-wave changes from 10/23) - XRAY 1 XRAY Study: Chest Impression: Abnormal, See EMR Report ( EXAM: CHEST-1 VIEW HISTORY: Leucocytos is TECHNIQUE: Single view COMPARISON: 12/10/2019 FINDINGS: There is a small right pleural effusion with basilar atelectasis. The left lung remains clear. No cardiomegaly. No pulmonary edema. No left-sided pleural effusion identified. IMPRESSION: Stable chest Electronically signed by Chai Morgan 01/05/2020 6:28 AM 01/05/20 0628 Interpreting Physician: Chai Morgan MD Dictated Date/Time: 01/05/20 0627 cc: Charanjit See MD; Juju Kohler) Comparison with other Films: no changes 2 XRAY: Left XRAY Study: Tibia/Fibula Impression: Abnormal, See EMR Report ( Signed LOWER LEG-LEFT - 01/05/2020 INDICATION: left leg pain TECHNIQUE: Two views COMPARISON: None FINDINGS: Bones are intact and normally aligned. There is high-grade degeneration at the ankle joint. There are also degenerative heel spurs. IMPRESSION: Degenerative changes of the ankle. Electronically signed by Ady Landers 01/05/2020 8:10 AM 01/05/20 0810 Interpreting Physician: Ady Landers MD Dictated Date/Time: 01/05/20 0808 cc: Jacinto Carpenter MD; Juju Kohler) - CT/MRI 1 CT Study: Head Impression: Abnormal, See EMR Report (Signed EXAM: CT HEAD W/O CONTRAST INDICATION: behavior change TECHNIQUE: This exam was performed using automated exposure control, adjustment of mA or kV according to patient size, and/or use of iterative reconstruction technique. COMPARISON: 10/08/2019 FINDINGS: There is stable right MCA distribution encephalomalacia. There is no definite acute infarct given the limited sensitivity of CT versus MRI. There is no discrete intracranial mass, mass effect, or intracranial hemorrhage. The surrounding soft tissues and bony structures are essentially unremarkable. IMPRESSION: Stable right MCA distribution encephalomalacia. No definite acute pathology by CT. Electronically signed by Micheal Kim 01/05/2020 8:40 AM 01/05/20 0840 Interpreting Physician: Micheal Kim MD Dictated Date/Time: 01/05/20 0838 cc: Jacinto Carpenter MD; Juju Kohler) Comparison with other Films: no changes 2 CT Study: Abdomen, Pelvis Impression: Abnormal, See EMR Report ( EXAM: CT ABD/PELVIS W/IV CONT ONLY INDICATION: abd pain, vomiting TECHNIQUE: This exam was performed using automated exposure control, adjustment of mA or kV according to patient size, and/or use of iterative reconstruction technique. COMPARISON: None. FINDINGS: There is a moderate-sized right pleural effusion and right basilar atelectasis. There is minimal atelectasis at the left lung base. The liver, gallbladder, spleen, pancreas, adrenal glands, kidneys, and urinary bladder are grossly unremarkable. The there has been a prior hysterectomy. The appendix is normal. There is abundant stool in the sigmoid colon and rectum suggesting possible constipation/obstipation. No focal bowel wall thickening or bowel obstruction is identified. The remainder of the GI tract is unremarkable. No focal inflammatory changes, free abdominal gas, or free fluid is identified. There is moderate aortoiliac atherosclerotic calcification. There is no evidence of aneurysm. There is degenerative changes involving the spine and both hips. There is no evidence of acute osseous abnormality. IMPRESSION: 1.Increased stool in the sigmoid colon and rectum suggesting possible mild constipation/obstipation. 2.Moderate-sized right pleural effusion and right basilar atelectasis. 3.Other incidental/nonacute findings detailed above. Electronically signed by Micheal Kim 01/05/2020 8:53 AM 01/05/20 0853 Interpreting Physician: Micheal Kim MD Dictated Date/Time: 01/05/20 0844 cc: Jacinto Carpenter MD; Juju Kohler) - CONSULTS/PCP/HOSPITALIST Notification #1 *Consult/PCP/Hospitalist*: Hospitalist LUIS ARMANDO paged at [phone] Time Discussed: 10:35 (LUIS ARMANDO [place]) Consult Disposition: Will see in ED, Admit - CHANGE OF SHIFT REPORT (ED Provider) 2 Report Given and Care Transferred to:: Dr Carpenter Time of Transfer: 07:00 Items Pending: Physician Consult/Arrival (ALEXANDRA eval pending) Departure - Departure Date of Disposition Decision: 01/05/20 Time of Disposition Decision: 10:28 DIAGNOSIS: Cellulitis of thumb, right, Abscess of thumb, right, Abnormal EKG, Obstipation, Behavioral and psychological symptoms of dementia, Elevation of cardiac enzymes Nausea & vomiting Qualifiers: Vomiting type: unspecified Vomiting Intractability: non-intractable Qualified Code(s): R11.2 - Nausea with vomiting, unspecified Leukocytosis (leucocytosis) Qualifiers: Leukocytosis type: bandemia Qualified Code(s): D72.825 - Bandemia Disposition: ADMITTED INPATIENT 09 Certified Medical Emergency: Urgent Condition: Stable Referrals and Follow-Ups: Juju Kohler [Primary Care Provider] - - Critical Care Note This patient required my direct & personal management of CC.: No Attestation - Physician/ LATRICE Attestation Patient care was provided by Advanced Practice Provider:: No The physician spent face to face time with patient:: Yes Advanced Practice Provider documentation review:: Supervising physician onsite and consulted in the evaluation and care of this patient. The physician did have a face to face encounter with the patient.
[2020-01-05] MEDS ORDERED: NS 1,000 ML IV ONE (01:39)
[2020-01-05] MEDS ORDERED: NS 1,000 ML ONE (01:44)
[2020-01-05 01:49] LABS: BASO# 0.04 X1000 (0.0-0.2); BASO% 0.2 % (0.0-0.8); EOS% 0.6 % (0.0-10.0); HEMOGLOBIN 11.7 g/dL (12.0-16.0); IMM GRAN# 0.04 X1000 (0.0-0.04); IMM GRAN% 0.2 % (0.0-0.5); LYMPH# 2.57 X1000 (1.2-3.4); LYMPH% 15.6 % (20.5-51.1); MCH 30.2 PG (27-31); MCHC 31.6 g/dL (33-37); MCV 95.4 FL (81-99); MONO# 0.86 X1000 (0.11-0.59); MONO% 5.2 % (1.7-9.3); NEUT# 12.84 X1000 (1.4-6.5); NEUT% 78.2 % (42.2-75.2); PLT 394 X1000 (130-400); RBC 3.88 XMIL (4.2-5.4); RDW 15.4 % (11.5-14.5); WBC 16.45 X1000 (4.8-10.8)
[2020-01-05 02:11] LABS: ESTIMATED GFR > 60
[2020-01-05 02:25] LABS: AGAP 20; ALB/GLOB RATIO 1.4; ALBUMIN 3.4 g/dL (3.5-5.0); ALKALINE PHOSPHATASE 66 U/L (32-104); BUN 12 mg/dL (8-22); CALCIUM 9.3 mg/dL (8.8-10.2); CHLORIDE 100 mmol/L (98-107); COSMO 276; CREATININE 0.7 mg/dL (0.5-0.9); GLUCOSE 113 mg/dL (70-104); GOT 8 U/L (10-30); GPT < 5 U/L (10-36); POTASSIUM 3.8 mmol/L (3.5-5.1); SODIUM 138 mmol/L (136-145); TCO2 18 mmol/L (25-35); TOTAL BILIRUBIN 0.38 mg/dL (0.20-1.00); TOTAL PROTEIN 5.9 g/dL (6.3-8.3)
[2020-01-05 02:32] LABS: URINE SOURCE CATH
[2020-01-05 02:39] LABS: BILIRUBIN URINE SMALL (NEGATIVE); BLOOD URINE NEGATIVE (NEGATIVE); COLOR YELLOW; GLUCOSE URINE NEGATIVE (NEGATIVE); KETONE URINE >150 mg/dL (NEGATIVE); LEUKOCYTES URINE NEGATIVE (NEGATIVE); NITRITE URINE NEGATIVE (NEGATIVE); PROTEIN URINE TRACE mg/dL (NEGATIVE); SP GRAVITY URINE 1.027; TURBIDITY URINE CLEAR (CLEAR); UROBILINOGEN URINE 2 mg/dL (NORMAL)
[2020-01-05 02:40] LABS: UR EPITHELIAL CELLS <10 /HPF (<10); URINE BACTERIA NEGATIVE /HPF; URINE RBC <10 /HPF (<10); URINE WBC <10 /HPF (<10)
[2020-01-05] MEDS ORDERED: TYLENOL PO ONE (05:21)
--- NOTE | 2020-01-05 06:30 | Diag Imaging Result Doc PS360 ---
EXAM: CHEST-1 VIEW HISTORY: Leucocytosis TECHNIQUE: Single view COMPARISON: 12/10/2019 FINDINGS: There is a small right pleural effusion with basilar atelectasis. The left lung remains clear. No cardiomegaly. No pulmonary edema. No left-sided pleural effusion identified. IMPRESSION: Stable chest Electronically signed by Chai Morgan 01/05/2020 6:28 AM
[2020-01-05] MEDS ORDERED: TORADOL IV ONE ×2 (06:50→13:06)
[2020-01-05 07:31] LABS: ACETAMINOPHEN < 1.2 ug/mL (10-30); SALICYLATES < 3.00 mg/dL (3-10)
[2020-01-05 07:38] LABS: UR AMPHETAMINES QUAL NONE DETECTED (NONE DETECT); UR BARBITUATES QUAL NONE DETECTED (NONE DETECT); UR BENZODIAZEPIN QUAL NONE DETECTED (NONE DETECT); UR CANNABINOIDS QUAL NONE DETECTED (NONE DETECT); UR COCAINE QUAL NONE DETECTED (NONE DETECT); UR METHADONE QUAL NONE DETECTED (NONE DETECT); UR OPIATES QUAL NONE DETECTED (NONE DETECT); UR OXYCODONE QUAL NONE DETECTED (NONE DETECT); UR PCP QUAL NONE DETECTED (NONE DETECT)
--- NOTE | 2020-01-05 07:46 | EKG Report ---
Test Performed on : 01/05/2020 07:37:24 AM Test Reason : psych clearance Blood Pressure : / mmHG Vent. Rate : 093 BPM Atrial Rate : 093 BPM P-R Int : 126 ms QRS Dur : 084 ms QT Int : 364 ms P-R-T Axes : 005 -02 178 degrees QTc Int : 452 ms Normal sinus rhythm. ST & T wave abnormality, consider anterolateral ischemia Abnormal ECG When compared with ECG of 08-OCT-2019 18:02, Questionable change in QRS axis Nonspecific T wave abnormality now evident in Inferior leads T wave inversion now evident in Anterolateral leads Unconfirmed Result
[2020-01-05] MEDS ORDERED: ASPIRIN PO ONE (08:05)
--- NOTE | 2020-01-05 08:12 | Diag Imaging Result Doc PS360 ---
LOWER LEG-LEFT - 01/05/2020 INDICATION: left leg pain TECHNIQUE: Two views COMPARISON: None FINDINGS: Bones are intact and normally aligned. There is high-grade degeneration at the ankle joint. There are also degenerative heel spurs. IMPRESSION: Degenerative changes of the ankle. Electronically signed by Ady Landers 01/05/2020 8:10 AM
--- NOTE | 2020-01-05 08:43 | Diag Imaging Result Doc PS360 ---
EXAM: CT HEAD W/O CONTRAST INDICATION: behavior change TECHNIQUE: This exam was performed using automated exposure control, adjustment of mA or kV according to patient size, and/or use of iterative reconstruction technique. COMPARISON: 10/08/2019 FINDINGS: There is stable right MCA distribution encephalomalacia. There is no definite acute infarct given the limited sensitivity of CT versus MRI. There is no discrete intracranial mass, mass effect, or intracranial hemorrhage. The surrounding soft tissues and bony structures are essentially unremarkable. IMPRESSION: Stable right MCA distribution encephalomalacia. No definite acute pathology by CT. Electronically signed by Micheal Kim 01/05/2020 8:40 AM
--- NOTE | 2020-01-05 08:56 | Diag Imaging Result Doc PS360 ---
EXAM: CT ABD/PELVIS W/IV CONT ONLY INDICATION: abd pain, vomiting TECHNIQUE: This exam was performed using automated exposure control, adjustment of mA or kV according to patient size, and/or use of iterative reconstruction technique. COMPARISON: None. FINDINGS: There is a moderate-sized right pleural effusion and right basilar atelectasis. There is minimal atelectasis at the left lung base. The liver, gallbladder, spleen, pancreas, adrenal glands, kidneys, and urinary bladder are grossly unremarkable. The there has been a prior hysterectomy. The appendix is normal. There is abundant stool in the sigmoid colon and rectum suggesting possible constipation/obstipation. No focal bowel wall thickening or bowel obstruction is identified. The remainder of the GI tract is unremarkable. No focal inflammatory changes, free abdominal gas, or free fluid is identified. There is moderate aortoiliac atherosclerotic calcification. There is no evidence of aneurysm. There is degenerative changes involving the spine and both hips. There is no evidence of acute osseous abnormality. IMPRESSION: 1.Increased stool in the sigmoid colon and rectum suggesting possible mild constipation/obstipation. 2.Moderate-sized right pleural effusion and right basilar atelectasis. 3.Other incidental/nonacute findings detailed above. Electronically signed by Micheal Kim 01/05/2020 8:53 AM
[2020-01-05 09:38] LABS: INR 1.15; PROTIME 14.9 Seconds (11.0-16.0)
[2020-01-05 10:12] LABS: ALLEN TEST NO; BE -2.5 mmoll (-3.0-3.0); BLOOD TYPE ARTERIAL; METHB 1.1 % (0.0-1.5); O2(CT) 15.3 mL/dL (15.0-23.0); O2HB 96.8 % (95.0-99.0); PCO2(98.6) 24 mmHg (35-45); PO2(98.6) 120 mmHg (60-100); SAMPLE BLOOD; SAO2 99.6 % (95.0-100.0); THB 11.1 g/dL (11.5-17.4); pH(98.6) 7.51 (7.35-7.45)
[2020-01-05 10:15] LABS: MODALITY ROOM AIR
[2020-01-05] MEDS ORDERED: MIRALAX PO ONE (11:22)
[2020-01-05] MEDS ORDERED: VANCOMYCIN IV PER PHARMACY MISC SCH (11:22)
[2020-01-05] MEDS ORDERED: PERICOLACE PO ONE (11:22)
[2020-01-05] MEDS ORDERED: VANCOMYCIN 2,000 MG in NS 500 ML IV ONE (12:00)
[2020-01-05] MEDS ORDERED: DULCOLAX PR ONE (13:07)
[2020-01-05] MEDS: ZOFRAN IV PRN (13:30)
--- NOTE | 2020-01-05 16:02 | HISTORY AND PHYSICAL ---
PRIMARY CARE PROVIDER: Juju Kohler MD CHIEF COMPLAINT: Stomach virus. HISTORY OF PRESENT ILLNESS: Ms. Viveros is a 59-year-old female who was discharged from our service on December 12 secondary to vasovagal response and acute kidney injury, fluid volume depletion and constipation as well as a large right pleural effusion, which she had an ultrasound- guided thoracentesis for. She reports since her last discharge she has been back home and feeling well up until the past week. She reports that she has vomited 3 times a day every day this week and she came to the ED to be treated for the stomach virus. The patient was worked up, was found to have a white count of 16 and a right thumb cellulitis with abscess as well as obstipation on imaging. The patient was set for discharge and had been in the ED for almost 10 hours and family refused to pick the patient because they wanted a [facility] consult. The patient has spoken with [facility]. She does not know or remember what they say. She just said that they had lots to say so she will be admitted. We will place her on IV antibiotics for her right thumb cellulitis and abscess. If it does not improve, we will consult Orthopedics in the a.m. We will continue on a bowel regimen. PAST MEDICAL HISTORY: 1. Recent large left pleural effusion that required an ultrasound-guided thoracentesis. 2. CVA with left-sided deficit. 3. Diabetes mellitus type 2. 4. Hypertension. 5. Hyperlipidemia. 6. Hypothyroidism. PAST SURGICAL HISTORY: Hysterectomy. FAMILY HISTORY: Positive for coronary artery disease in mother, in her 60s. SOCIAL HISTORY: Former smoker. No alcohol or illicit drug use. Lives with a daughter. ALLERGIES: No known drug allergies. MEDICATIONS: Home medications are being compiled. REVIEW OF SYSTEMS: On a 14 point review of systems the patient does complain of nausea and vomiting. She reports no fever, no chills. She is awake, alert, oriented; however, she does repeat questions and if you answer question she will ask you again and denied any other issues. Again, no fever, no chills. No cough. No sore throat. No shortness of breath. No sick contacts or recent travels. PHYSICAL EXAMINATION: VITAL SIGNS: Temperature is 98.3 degrees, heart rate 81, respirations 18, blood pressure 137/100. O2 is 98% on room air. GENERAL: Ms. Viveros is a 59-year-old female who is sitting up in the bed eating lunch in no acute distress. HEENT: Atraumatic, normocephalic. PERRL. NECK: Supple. Trachea midline. CARDIOVASCULAR: S1, S2 appreciated. No murmurs, gallops, rubs noted. RESPIRATORY: Lung sounds clear bilaterally, decreased in the right. ABDOMEN: Soft, nontender, nondistended. Positive bowel sounds 4 quads. LOWER EXTREMITIES: Negative for edema. NEUROLOGIC: Patient is awake, alert, oriented to name, date of , current year and location. However, she does repeat herself and she will ask the same question twice. If you are trying explained something to her, she will interrupt you and talk about something different. DIAGNOSTIC DATA: Abdomen and pelvis CT showed increased stool in the sigmoid colon and rectum suggestive of possible mild constipation, obstipation. Moderate size right pleural effusion and right basilar atelectasis. Head CT stable right MCA distribution encephalomalacia. No definite acute pathology by CT. LABORATORY DATA: White count 16, hemoglobin and hematocrit 11 and 37, platelet count is 394,000. Sodium 138, potassium 3.8, BUN 12, creatinine 0.7, blood glucose is 113. CK 22. First troponin 43, 2nd troponin 44. ProBNP is 2143. TSH is 4.32. Urinalysis is negative. Valproic acid is 8.7. ASSESSMENT AND PLAN: 1. Right thumb cellulitis with possible abscess. We will continue with IV antibiotics. Consult Orthopedics in the a.m. if it is not improving for possible incision and drainage. 2. Constipation/obstipation. Patient is currently NPO. We will continue with bowel regimen. 3. Moderate sized pleural effusion. The patient is saturating well on room air. We will recheck a portable chest x-ray in the a.m. Hypothyroidism with an elevated TSH. We will check a T4, T3. 4. Diabetes mellitus. We will place on sliding scale with pattern blood sugars. 5. Cerebrovascular accident with left-sided deficits. 6. Hypertension. 7. Hypothyroidism. 8. Further recommendations to follow physician evaluation, laboratory and diagnostic data. Dictated by LUIS ARMANDO Suarez for Chelo Daniels MD cc: MD Juju Davies MD
[2020-01-05] MEDS: MAXIPIME 1 GM in NS 50 ML IV SCH (20:31)
[2020-01-05] MEDS: TYLENOL PO PRN (20:32)
[2020-01-05] MEDS: DULCOLAX PR SCH (20:32)
[2020-01-05] MEDS: PERICOLACE PO SCH (20:32)
[2020-01-05] MEDS: MIRALAX PO SCH (20:32)
[2020-01-06] MEDS: ZOFRAN IV PRN ×3 (01:53→23:13)
[2020-01-06 04:18] LABS: BASO# 0.03 X1000 (0.0-0.2); BASO% 0.3 % (0.0-0.8); EOS# 0.18 X1000 (0.0-0.7); EOS% 1.8 % (0.0-10.0); HEMATOCRIT 32.4 % (37.0-47.0); HEMOGLOBIN 10.2 g/dL (12.0-16.0); IMM GRAN# 0.03 X1000 (0.0-0.04); IMM GRAN% 0.3 % (0.0-0.5); LYMPH# 1.75 X1000 (1.2-3.4); MCH 30.2 PG (27-31); MCHC 31.5 g/dL (33-37); MCV 95.9 FL (81-99); MONO# 0.79 X1000 (0.11-0.59); MONO% 8.1 % (1.7-9.3); MPV 9.8 FL (7.4-10.4); NEUT# 6.96 X1000 (1.4-6.5); NEUT% 71.5 % (42.2-75.2); PLT 326 X1000 (130-400); RBC 3.38 XMIL (4.2-5.4); RDW 15.7 % (11.5-14.5); WBC 9.74 X1000 (4.8-10.8)
[2020-01-06 04:51] LABS: AGAP 14; ALB/GLOB RATIO 1.1; ALBUMIN 2.8 g/dL (3.5-5.0); ALKALINE PHOSPHATASE 60 U/L (32-104); BUN 10 mg/dL (8-22); CALCIUM 8.7 mg/dL (8.8-10.2); CHLORIDE 104 mmol/L (98-107); COSMO 274; CREATININE 0.6 mg/dL (0.5-0.9); ESTIMATED GFR > 60; GLUCOSE 94 mg/dL (70-104); GOT 7 U/L (10-30); GPT < 5 U/L (10-36); MAGNESIUM 1.6 mg/dL (1.5-2.7); POTASSIUM 3.2 mmol/L (3.5-5.1); SODIUM 138 mmol/L (136-145); TCO2 20 mmol/L (25-35); TOTAL BILIRUBIN 0.26 mg/dL (0.20-1.00); TOTAL PROTEIN 5.4 g/dL (6.3-8.3)
[2020-01-06] MEDS ORDERED: POTASSIUM CHLORIDE 60 MEQ in NS 500 ML IV ONE (06:44)
[2020-01-06] MEDS ORDERED: MAGNESIUM SULFATE 2 GM/S.W.I. 2 GM/50 ML IVPB IV ONE (06:44)
--- NOTE | 2020-01-06 07:35 | EKG Report ---
Test Performed on : 01/06/2020 06:28:04 AM Test Reason : chest pain Blood Pressure : / mmHG Vent. Rate : 102 BPM Atrial Rate : 102 BPM P-R Int : 160 ms QRS Dur : 088 ms QT Int : 376 ms P-R-T Axes : 063 024 201 degrees QTc Int : [address] & T wave abnormality, consider inferior ischemia ST & T wave abnormality, consider anterolateral ischemia Abnormal ECG When compared with ECG of 05-JAN-2020 07:38, (Unconfirmed) No significant change was found Confirmed by Esau REY, Rubens Orosco ([id number]) on 01/09/2020 9:39:03 AM
[2020-01-06] MEDS: TYLENOL PO PRN ×2 (08:06→20:26)
[2020-01-06] MEDS: MAXIPIME 1 GM in NS 50 ML IV SCH ×2 (08:07→20:26)
[2020-01-06] MEDS: PERICOLACE PO SCH ×2 (08:07→20:27)
[2020-01-06] MEDS: MIRALAX PO SCH ×2 (08:07→20:27)
--- NOTE | 2020-01-06 08:16 | Diag Imaging Result Doc PS360 ---
FLAT/UPRIGHT ABD/1 VIEW CHEST - 01/06/2020 INDICATION: constipation/pleural effusion TECHNIQUE: COMPARISON: 01/05/2020 FINDINGS: There is a small right pleural effusion stable from prior. No infiltrates. The left lung is clear. Heart size and pulmonary vascularity is normal. There is a nonobstructive bowel gas pattern. No free air or abnormal calcifications. There are surgical clips in the pelvis bilaterally. No constipation. IMPRESSION: Right pleural effusion stable from prior. No acute process in the abdomen. Electronically signed by Ady Landers 01/06/2020 8:14 AM
[2020-01-06] MEDS: VANCOMYCIN 1,700 MG in NS 250 ML IV SCH (09:16)
[2020-01-06] MEDS ORDERED: NS 500 ML ONE ×2 (10:32→20:10)
--- NOTE | 2020-01-06 13:28 | Diag Imaging Result Doc PS360 ---
HAND COMPLETE RIGHT - 01/06/2020 INDICATION: swelling in thumb TECHNIQUE: Three views COMPARISON: None FINDINGS: Bones are intact and normally aligned. Joint spaces and soft tissues are clear. IMPRESSION: Negative exam. Electronically signed by Ady Landers 01/06/2020 1:26 PM
[2020-01-06] MEDS ORDERED: GLUCOPHAGE XR PO PRN (16:49)
[2020-01-06] MEDS ORDERED: CELEXA PO ONE (17:20)
--- NOTE | 2020-01-06 19:53 | PROGRESS NOTE ---
DATE: 01/06/2020 SUBJECTIVE: The patient is resting comfortably. She was able to eat breakfast without any difficulty and she is currently eating lunch. OBJECTIVE: Vital Signs: Temperature 98.3 degrees, blood pressure 153/79, heart rate 84, respirations 20, O2 saturation is 99% on room air. General: This is an elderly female lying in bed in no acute distress. Heart: S1, S2 normal. Regular rate and rhythm. Lungs: Equal air entry bilaterally. No wheezing. No rales. Abdomen: Positive bowel sounds. Soft, nontender, nondistended. Extremities: No edema. No cyanosis. Neurologic: The patient is alert and oriented x3. LABORATORY DATA: Potassium 3.2, magnesium 1.6, glucose 94, BUN 10, creatinine 0.6. IMAGING: Hand x-ray negative. ASSESSMENT AND PLAN: 1. Nausea and vomiting with constipation. The x-ray shows clearance of the constipation. The patient had a large bowel movement yesterday. We will continue with laxative therapy. 2. Right thumb cellulitis. Continue with antibiotic therapy. 3. Situational depression. Continue on Celexa. 4. Hypokalemia. We will replace the patient's potassium. 5. Hypothyroidism. Continue on Synthroid. 6. Diabetes mellitus type 2. Continue on metformin. 7. History of cerebrovascular accident. Continue on aspirin. 8. Anxiety disorder. Continue on Ativan. 9. Deep vein thrombosis prophylaxis. We will start the patient on Lovenox. 10. Disposition: Will consult PT. cc: Chelo Daniels MD MTDD
[2020-01-06] MEDS: LOVENOX SUBQ SCH (20:27)
[2020-01-06] MEDS: ATIVAN PO SCH (20:27)
[2020-01-06] MEDS: DULCOLAX PR SCH (20:28)
[2020-01-06] MEDS: BUSPAR PO SCH (20:34)
[2020-01-06] MEDS: COLACE PO SCH (20:34)
[2020-01-07] MEDS: VANCOMYCIN 1,700 MG in NS 250 ML IV SCH ×2 (02:25→20:30)
[2020-01-07] MEDS: ZOFRAN IV PRN ×2 (06:03→13:29)
[2020-01-07] MEDS: TYLENOL PO PRN ×3 (06:04→20:32)
[2020-01-07 07:38] LABS: BASO# 0.02 X1000 (0.0-0.2); BASO% 0.3 % (0.0-0.8); EOS# 0.44 X1000 (0.0-0.7); EOS% 5.7 % (0.0-10.0); HEMATOCRIT 31.6 % (37.0-47.0); HEMOGLOBIN 10.1 g/dL (12.0-16.0); IMM GRAN# 0.03 X1000 (0.0-0.04); IMM GRAN% 0.4 % (0.0-0.5); LYMPH% 27.2 % (20.5-51.1); MCH 30.6 PG (27-31); MCV 95.8 FL (81-99); MONO# 0.71 X1000 (0.11-0.59); MONO% 9.2 % (1.7-9.3); MPV 10.2 FL (7.4-10.4); NEUT# 4.43 X1000 (1.4-6.5); NEUT% 57.2 % (42.2-75.2); PLT 303 X1000 (130-400); RDW 15.7 % (11.5-14.5); WBC 7.73 X1000 (4.8-10.8)
[2020-01-07] MEDS: SYNTHROID PO SCH ×2 (07:40→09:56)
[2020-01-07 08:27] LABS: AGAP 11; BUN 6 mg/dL (8-22); CALCIUM 8.6 mg/dL (8.8-10.2); CHLORIDE 102 mmol/L (98-107); COSMO 261; CREATININE 0.6 mg/dL (0.5-0.9); ESTIMATED GFR > 60; GLUCOSE 86 mg/dL (70-104); POTASSIUM 3.4 mmol/L (3.5-5.1); SODIUM 132 mmol/L (136-145); TCO2 19 mmol/L (25-35)
[2020-01-07] MEDS ORDERED: KLOR-CON PO ONE (09:06)
[2020-01-07] MEDS ORDERED: MAGNESIUM SULFATE 2 GM/S.W.I. 2 GM/50 ML IVPB IV ONE (09:06)
[2020-01-07] MEDS: CELEXA PO SCH (09:56)
[2020-01-07] MEDS: DEPAKOTE PO SCH (09:56)
[2020-01-07] MEDS: ATIVAN PO SCH ×2 (09:56→20:31)
[2020-01-07] MEDS: BUSPAR PO SCH ×2 (09:56→20:31)
[2020-01-07] MEDS: MAXIPIME 1 GM in NS 50 ML IV SCH ×2 (09:57→20:31)
[2020-01-07] MEDS: ASPIRIN EC PO SCH (09:57)
[2020-01-07] MEDS: PERICOLACE PO SCH ×2 (11:19→20:31)
[2020-01-07] MEDS: COLACE PO SCH ×2 (11:19→20:31)
[2020-01-07] MEDS: MIRALAX PO SCH (11:19)
[2020-01-07] MEDS ORDERED: BLISTEX MEDICATED BERRY LIP BALM TOP PRN (14:40)
--- NOTE | 2020-01-07 16:58 | PROGRESS NOTE ---
DATE: 01/07/2020 SUBJECTIVE: The patient states that she wants to go home. She complains of pain in her legs. OBJECTIVE: Vital Signs: Temperature 98 degrees, blood pressure 153/83, heart rate 90, respirations 24, O2 saturation is 100% on room air. General: This is a chronically ill- appearing, elderly female lying in bed, in no acute distress. Heart: S1, S2 normal. Lungs: Equal air entry bilaterally. No wheezing. No rales. No rhonchi. Abdomen: Positive bowel sounds. Soft, nontender, nondistended. Extremities: No edema. No cyanosis. Neurologic: The patient is alert and oriented x3. LABS: White blood cell count 7.7, hemoglobin 10, hematocrit 31, platelets 303,000. Sodium 132, potassium 3.4, chloride 102, CO2 19, BUN 6, creatinine 0.6, glucose 86, magnesium 1.7. ASSESSMENT AND PLAN: 1. Nausea and vomiting with constipation. Resolved. The patient is on solid diet. She is having regular bowel movements. 2. Right thumb cellulitis. Improved. We will switch the patient to oral antibiotic therapy. 3. Situational depression. Continue on Celexa. 4. Behavioral disturbance with possible psychosis. We will consult with [facility] for inpatient admission. 5. Hypothyroidism. Continue on Synthroid. 6. Hypokalemia. We will replace the patient's potassium. 7. Diabetes mellitus type 2. Continue on metformin. 8. History of cerebrovascular accident. Continue on aspirin. 9. Anxiety disorder. Continue on Ativan. 10. Deep vein thrombosis prophylaxis. Continue on Lovenox. 11. Disposition. The patient is medically stable for discharge to inpatient psychiatric treatment. We will consult with [facility]. cc: Chelo Daniels MD
[2020-01-07] MEDS: LOVENOX SUBQ SCH (20:32)
[2020-01-08] MEDS: MIRALAX PO SCH ×2 (00:17→09:57)
[2020-01-08] MEDS: DULCOLAX PR SCH (00:17)
[2020-01-08] MEDS: TYLENOL PO PRN (03:11)
[2020-01-08 08:18] VITALS: BP 182/97
[2020-01-08] MEDS: MAXIPIME 1 GM in NS 50 ML IV SCH (09:43)
[2020-01-08] MEDS: ZOFRAN IV PRN (09:48)
[2020-01-08] MEDS: PERICOLACE PO SCH (09:54)
[2020-01-08] MEDS: CELEXA PO SCH (09:54)
[2020-01-08] MEDS: DEPAKOTE PO SCH (09:54)
[2020-01-08] MEDS: ASPIRIN EC PO SCH (09:54)
[2020-01-08] MEDS: SYNTHROID PO SCH (09:54)
[2020-01-08] MEDS: COLACE PO SCH (09:54)
[2020-01-08] MEDS: BUSPAR PO SCH (09:54)
[2020-01-08 12:51] LABS: BASO# 0.03 X1000 (0.0-0.2); BASO% 0.4 % (0.0-0.8); EOS# 0.51 X1000 (0.0-0.7); EOS% 6.4 % (0.0-10.0); HEMATOCRIT 35.8 % (37.0-47.0); HEMOGLOBIN 11.2 g/dL (12.0-16.0); IMM GRAN# 0.02 X1000 (0.0-0.04); IMM GRAN% 0.3 % (0.0-0.5); LYMPH# 2.05 X1000 (1.2-3.4); LYMPH% 25.8 % (20.5-51.1); MCH 30.3 PG (27-31); MCHC 31.3 g/dL (33-37); MCV 96.8 FL (81-99); MONO# 0.62 X1000 (0.11-0.59); MONO% 7.8 % (1.7-9.3); MPV 10.1 FL (7.4-10.4); NEUT# 4.72 X1000 (1.4-6.5); NEUT% 59.3 % (42.2-75.2); PLT 348 X1000 (130-400); RDW 16.1 % (11.5-14.5); WBC 7.95 X1000 (4.8-10.8)
[2020-01-08 13:20] LABS: AGAP 10; BUN 5 mg/dL (8-22); CALCIUM 8.4 mg/dL (8.8-10.2); CHLORIDE 106 mmol/L (98-107); COSMO 274; CREATININE 0.6 mg/dL (0.5-0.9); ESTIMATED GFR > 60; GLUCOSE 93 mg/dL (70-104); POTASSIUM 3.6 mmol/L (3.5-5.1); SODIUM 139 mmol/L (136-145); TCO2 23 mmol/L (25-35)
--- NOTE | 2020-01-09 06:54 | DISCHARGE SUMMARY ---
ADMISSION DATE: 01/05/2020 DISCHARGE DATE: 01/08/2020 FINAL DISCHARGE DIAGNOSES: 1. Nausea and vomiting with constipation. 2. Right thumb cellulitis. 3. Situational depression. 4. Behavioral disturbance. 5. Hypothyroidism. 6. Hypokalemia. 7. Diabetes mellitus, type 2. 8. History of cerebrovascular accident with hemiparesis. 9. Anxiety disorder. IMAGIN. Chest x-ray performed on 01/05/2020, which revealed a stable chest. 2. Left leg x-ray which revealed degenerative changes of the ankle. 3. CT of the abdomen and pelvis performed on 01/05/2020, which revealed moderate size right pleural effusion and right basal atelectasis. Mild constipation. 4. Hand x-ray performed on 01/06/2020, which revealed no acute disease. HOSPITAL COURSE: Ms. Viveros is a 59-year-old female, with a history of multiple medical problems, who presented to the ER with a chief complaint of nausea, vomiting, and abdominal discomfort. In the ER a CT of the abdomen and pelvis was done that revealed constipation. The patient was admitted to the hospitalist service. Upon further evaluation the patient was noted to have a cellulitis involving her right thumb. An x-ray was done of the hand and no acute findings were seen. The patient was started on laxative therapy and antiemetic therapy. With the initiation of laxatives, the patient's bowels started to move and her nausea and vomiting improved. The patient was also treated with IV antibiotics with a cellulitis involving the right thumb, with good results. The patient continued to improve clinically. She was noted to have a low potassium, which was replaced with IV supplementation. The patient continued to improve clinically and was ultimately cleared for discharge home on 01/08/2020. DISCHARGE MEDICATIONS: 1. Lactobacillus 1 tab oral daily. 2. MiraLAX 17 g oral twice a day. 3. Keflex 500 mg oral twice a day x5 days. 4. Zofran 4 mg oral every 6 hours p.r.n. for nausea. 5. Colace 100 mg oral twice a day. 6. Ativan 0.5 mg oral twice a day. 7. Metformin 2 tablets oral daily. 8. Aspirin 81 mg oral daily. 9. BuSpar 15 mg oral twice a day. 10. Synthroid 112 mcg oral daily. 11. Depakote 125 mg oral daily. 12. Senokot 8.6 mg oral daily. 13. Robaxin 750 mg oral every 8 hours p.r.n. for spasms. 14. Celexa 40 mg p.o. daily. DISCHARGE DIET: 1800 ADA diet. ACTIVITY: As tolerated. FOLLOWUP INSTRUCTIONS: The patient will need to follow up with Dr. Juju Kohler in 1 to 2 weeks. cc: MD Juju Davies MD
== END 2020-01-08 14:11 | disposition home health service (06) | DRG 603 ==
LOC: ED 00:57 → 3N 00:58
PROVIDERS: ATTEND Internal Medicine